=== PATIENT | female | born 1965 | race Caucasian/White ===

== ENCOUNTER → 2016-08-09 | Outpatient (CLI) | payer BC ==
[~2016-08-09] MED LIST: IBUP-1050 PO
--- NOTE | 2016-08-09 12:14 | DIAGNOSTIC IMAGING REPORT ---
CT OF THE SINUSES WITHOUT CONTRAST FUSION PROTOCOL CLINICAL HISTORY: Chronic sinusitis. Nasal septal deviation. COMPARISON STUDY: MRI of the brain April 21, 2013. TECHNIQUE: Axial images of the sinuses were obtained according to Fusion protocol. Coronal reformats were viewed. No intravenous contrast was administered. FINDINGS: Visualized portions of the intracranial contents are unremarkable on this unenhanced exam. Right mastoid air cells are clear. There is trace fluid within left mastoid air cells. There is no fluid within the middle ears. Ossicles are intact. Orbits are unremarkable. The right frontal sinus is opacified. The right frontoethmoidal recess is occluded. There is moderate polypoid mucosal thickening of the ethmoid sinuses with mild polypoid mucosal thickening of the maxillary and sphenoid sinuses. There are postsurgical findings consistent with partial ethmoidectomies and resection of the medial zarco of both maxillary sinuses. There is mild S-shaped deviation of the nasal septum. No bony destruction is present. IMPRESSION: 1. Postsurgical findings within the sinuses, as described above. 2. Opacified right frontal sinus with occluded right frontoethmoidal recess. Mild to moderate polypoid mucosal thickening within the sinuses. 3. No bony destruction. No air-fluid levels. Electronically signed by: Camilo Odell M.D. 08/09/2016 12:12 PM Dictated Date/Time: 08/09/2016 11:56 AM
== END | disposition home or self-care (01) ==
LOC: C.CTS 11:19
DX: J34.2 Deviated nasal septum (principal); J32.9 Chronic sinusitis, unspecified; J34.3 Hypertrophy of nasal turbinates

== ENCOUNTER → 2016-11-02 | Day surgery (SDC) | payer BC ==
[2016-10-05 11:58] VITALS: Ht 174 cm; Wt 92.7 kg
[~2016-11-02] VITALS: Ht 174 cm; Wt 92.7 kg
[~2016-11-02] MED LIST changes: +ATROPINE SULFATE 0.1 MG/ML 5ML SYR IV PRN; +CEFAZOLIN 2000 MG/60 ML D5W IV SCH; +DEXAMETHASONE SOD INJ 4 MG/ML VIAL ONE; +EpINEphrine INJ 1MG/ML AMP 1 MG/ML AMP ONE; +FENTANYL CITRATE INJ 50 MCG/1 ML 2 ML VIAL ONE; +GLYCOPYRROLATE INJ 0.2 MG/ML VIAL ONE; +HYDROCODONE/ACETAMOPHEN 5/325MG TAB PO PRN; -IBUP-1050 PO; +LABETALOL HCL IV 5 MG/ML 20ML IV PRN; +LACTATED RINGER'S 1000ML 1,000 ML IV SCH; +LIDOCAINE 4% MPF SOAK 5 ML = 1 DOSE TOP ONE; +LIDOCAINE HCL 2% 2 ML VIAL (20MG/ML) ONE; +LIDOCAINE/EPINEPHRINE 1% INJ 50 ML VIAL ONE; +MIDAZOLAM HCL 1 MG/ML 2ML VIAL ONE; +NEOSTIGMINE METHYLSULFATE 5 MG/5 ML SYR ONE; +ONDANSETRON INJ 2 MG/ML 2 ML VIAL IV PRN; +ONDANSETRON INJ 2 MG/ML 2 ML VIAL ONE; +OXYMETAZOLINE HCL 0.05% NA SPR 15 ML BTL PRN; +OXYMETAZOLINE HCL 0.05% NA SPR 15 ML BTL SCH; +PROMETHAZINE HCL INJ 6.25 MG in SODIUM CHLORIDE 0.9% 50ML 50 ML IV PRN; +PROPOFOL IV EMULSION 10 MG/ML 20 ML VIAL IV ONE; +SCOPOLAMINE 1.5 MG TDSY TD ONE
--- NOTE | 2016-11-02 09:24 | History and Physical: Surg Cnt ---
History & Physical Date Nov 02, 2016. Chief Complaint CHRONIC SINUSITIS, SEPTAL DEVIATION, BILATERAL INFERIOR TURBINATE HYPERTROPHY History of Present Illness The patient is a 50 year old female with complaints of CHRONIC SINUSITIS, SEPTAL DEVIATION, BILATERAL INFERIOR TURBINATE HYPERTROPHY REFRACTORY TO MAXIMAL MEDICAL THERAPY. Past Medical/Surgical History Medical Problems: (1) Lumbar spondylosis (2) Lumbar spondylosis (3) Thrombocytopenia 4. ITP 5. SNHL PSH: S/P HEATHER, EYE SURGERY, HAND SURGERY, HYSTERECTOMY, OOPHORECTOMY, TONSILLECTOMY , TUBAL LIGATION Additional History Hepatic Disease: No Endocrine Disorder: No Kidney Disease: No Hypertension: No Heart Disease: No Bleeding Tendencies: No Infectious Diseases: No Allergies Coded Allergies: Morphine (Verified Adverse Reaction, Mild, n/v, 11/02/16) Home Medications No Active Prescriptions or Reported Meds Physical Examination Skin: warm/dry, no rash Eyes: normal inspection, EOMI, sclerae normal ENT: + pertinent finding (B DNS AND ITH) Head: normocephalic, atraumatic Neck: supple, no adenopathy, trachea midline Respiratory/Chest: lungs clear, normal breath sounds, no respiratory distress Cardiovascular: regular rate, rhythm, no edema, no murmur Neurologic/Psych: no motor/sensory deficits, alert, normal reflexes, oriented x 3 Diagnosis CHRONIC SINUSITIS, SEPTAL DEVIATION, BILATERAL INFERIOR TURBINATE HYPERTROPHY Plan of Treatment IMAGE GUIDED B FESS/SEPTOPLASTY/INFERIOR TURBINATE REDUCTION
--- NOTE | 2016-11-02 10:29 | Discharge Instructions ---
Discharge Instructions Date of Service Nov 02, 2016. Admission Reason for Admission: Chronic Sinusitis, Nasal Septal Deviation, Nasal H Discharge Discharge Diagnosis / Problem: SAME Discharge Goals Goal(s): Therapeutic intervention Activity Recommendations Activity Limitations: as noted below 1. LIGHT ACTIVITY AND NO NOSE BLOWING FOR 2 WEEKS 2. NO DRIVING WHILE ON NORCO . Current Hospital Diet Patient's current hospital diet: Discharge Diet Recommended Diet: Regular Diet Procedures Procedures Performed: Revision Image Guided Bilateral Endoscopic Sinus Surgery, Septoplasty, Bilateral Inferior Turbinate Reduction Pending Studies Studies pending at discharge: no Medical Emergencies . Who to Call and When: Medical Emergencies: If at any time you feel your situation is an emergency, please call 911 immediately. . Non-Emergent Contact Non-Emergency issues call your: Surgeon . . "Provider Documentation" section prepared by Jimy De Los Santos. . VTE Core Measure Inpt VTE Proph given/why not?: SCD's
[2016-11-02] MEDS: FENTANYL CITRATE INJ 50 MCG/1 ML 2 ML VIAL IV PRN ×2 (10:50→11:02)
--- NOTE | 2016-11-02 10:56 | [facility] Operative Report ---
Operative Report Operative Date Nov 02, 2016. Pre-Operative Diagnosis Chronic Sinusitis, Nasal Septal Deviation, Hypertrophy of Nasal Turbinates Post-Operative Diagnosis Same Procedure(s) Performed Revision Image Guided Bilateral Endoscopic Sinus Surgery, Septoplasty, Bilateral Inferior Turbinate Reduction Surgeon Dr. De Los Santos Vice President Of Contracts Surgeon(s) None Estimated Blood Loss 50 ml Findings 1. Bilateral septal deviation 2. Bilateral inferior turbinate hypertrophy 3. Synechia between left middle turbinate and lateral nasal wall blocking previous left maxillary antrostomy and left ethmoidectomy 4. Polypoid mucosal thickening involving the left maxillary and ethmoid sinuses 5. Mild bilateral sphenoid sinus mucosal thickening 6. Severe right frontal ethmoid recess polyposis and purulence within the right frontal sinus 7. Synechia between the right middle turbinate and lateral nasal wall blocking previous right maxillary antrostomy and right ethmoidectomy Specimens None Anesthesia Gen. endotracheal Complication(s) None Indications The patient is a 50-year-old female with a history of chronic polypoid rhinosinusitis who has undergone endoscopic sinus surgery, septoplasty in the past by another impregnator and drier helper. She has had continued symptomatology despite maximal medical therapy. A posttreatment CT scan showed right frontal ethmoid recess blockage with a completely opacified right frontal sinus as well as patchy bilateral ethmoid sinus mucosal thickening and mild bilateral sphenoid sinus mucosal thickening. In the office, there appeared to be synechiae blocking the openings to the maxillary sinuses and ethmoid sinuses bilaterally. In addition she has septal deviation and inferior turbinate hypertrophy. She presents for revision image guided endoscopic sinus surgery. Description of Procedure After informed consent had been obtained from the patient, the patient was wheeled to the operating room and placed in the operative table in supine position. Monitors were placed after induction of general endotracheal anesthesia, the patient was prepped in usual fashion for image guided endoscopic sinus surgery. The [employer] fusion headset was placed on the patient's forehead and was verified, registered, and calibrated and used for the frontal sinus and sphenoid sinus portions of the procedure. Lidocaine and epinephrine pledgets are placed in the bilateral nasal cavities and pressure applied. The left-sided pledgets were first removed. A Ocate elevator was used to medialize the left middle turbinate as well as to lyse the synechia that was blocking the previous left maxillary antrostomy and ethmoid cavity. A lidocaine and epinephrine pledget was then placed into the left middle meatus. The right side was then addressed in a similar fashion. The left-sided plate was then removed. Instrumentation was used to perform a revision left maxillary antrostomy making the natural opening larger posteriorly, inferiorly, and anteriorly. There was mild mucosal thickening involving the left maxillary sinus. There was polypoid mucosal thickening involving the left ethmoid sinus and this was removed using power instrumentation. A revision complete ethmoidectomy was performed on this side. Using a trans-ethmoid approach, the left sphenoid sinus was entered and enlarged medially and inferiorly using powered instrumentation. A pledget was then placed into the left ethmoid cavity. The right side was addressed in a similar fashion and similarly there was a synechia blocking the right maxillary antrostomy and ethmoid cavity. This was lysed using the Ocate elevator. Powered instrumentation was used to perform a revision maxillary antrostomy and complete ethmoidectomy. Of note, there was severe polyposis involving the frontal ethmoid recess. After removal of a large polyp from this area a large amount of purulence was suctioned free from the right frontal sinus. An image guided frontal sinus suction was then inserted into the right frontal sinus. A #6 frontal sinus balloon was then inserted and inflated to 12 dain of pressure in 2 different locations to dilate the right frontal recess tract. Powered Instrumentation was used to remove polypoid tissue from the right frontal ethmoid recess. A right sphenoidotomy was then performed in a similar fashion as described on the left side. The nasal septum was then injected with 1% lidocaine with 1:100,000 epinephrine. A #15 scalpel was used to make a left [place] incision through which the left-sided mucoperichondrial mucoperiosteal flap was elevated. The patient had a previous septoplasty and therefore there was a large amount of absent quadrangular cartilage. Dissection in the septal pocket was undertaken using a 7 Vanegas suction. Small pieces of quadrangular cartilage that were causing deviation to the left-hand side anteriorly were removed using a 15 scalpel and Brody forceps. Some septal bone posteriorly was removed using Brody forceps as well which helped improve the airway on the right hand side. The septal cavity was then suctioned. The left [place] incision was closed with several simple interrupted 4-0 chromic sutures. A 4-0 plain gut suture on a Vj needle was then used to perform a quilting stitch of the mucoperichondrial and periosteal flaps bilaterally to help prevent septal hematoma. A Manjarrez elevator was then used to infracture and subsequently outfractured the inferior turbinates bilaterally. One percent lidocaine with 1: 100,000 epinephrine was then used to inject the inferior turbinates bilaterally. A 2.0 mm turbinate blade was then used to perform bilateral inferior turbinoplasties in a submucosal fashion. The sinonasal cavities were then suctioned. MeroGel dressing was placed in the bilateral ethmoid cavities. An orogastric tube was placed and the stomach was suctioned free of air and stomach contents. This marked in the case. The patient had a procedure well, patient's. The patient was exiting transferred recovery room in stable condition. I attest to the content of the Intraoperative Record and any orders documented therein. Any exceptions are noted below.
[2016-11-02 11:50] VITALS: TEMP 36.4
--- NOTE | 2016-11-02 11:58 | Anesthesiology Progress Note ---
Anesthesia Post Op Note Date & Time Nov 02, 2016 at 11:57 Vital Signs Pain Intensity: 3 Vital Signs Past 12 Hours Date Time Temp Pulse Resp B/P (MAP) Pulse Ox O2 Delivery O2 Flow Rate FiO2 11/02/16 11:31 132/87 11/02/16 11:29 36.2 58 12 132/87 97 Room Air 11/02/16 11:27 63 8 11/02/16 11:27 68 8 99 11/02/16 11:26 123/78 11/02/16 11:22 71 10 97 11/02/16 11:22 72 10 11/02/16 11:21 125/88 11/02/16 11:17 56 14 11/02/16 11:17 56 14 99 11/02/16 11:16 124/90 11/02/16 11:12 69 11 100 11/02/16 11:12 65 11 11/02/16 11:11 143/91 11/02/16 11:07 77 13 11/02/16 11:07 78 13 100 11/02/16 11:06 145/86 11/02/16 11:02 76 6 100 11/02/16 11:02 76 6 11/02/16 11:01 139/89 11/02/16 10:57 58 11 11/02/16 10:57 57 11 100 11/02/16 10:56 137/86 11/02/16 10:52 68 9 11/02/16 10:52 68 9 100 11/02/16 10:51 138/88 11/02/16 10:47 78 15 100 11/02/16 10:47 79 15 11/02/16 10:46 132/81 11/02/16 10:42 74 11 100 11/02/16 10:42 75 11 11/02/16 10:41 136/81 11/02/16 10:38 131/75 11/02/16 10:37 36.2 97 16 131/75 99 Humidified Oxygen 6 Mask 11/02/16 07:43 36.5 78 16 114/78 (90) 97 Room Air Notes Mental Status: alert / awake / arousable, participated in evaluation Pt Amnestic to Procedure: Yes Nausea / Vomiting: adequately controlled Pain: adequately controlled Airway Patency, RR, SpO2: stable & adequate BP & HR: stable & adequate Hydration State: stable & adequate Anesthetic Complications: no major complications apparent
[2016-11-02 12:45] VITALS: BP 125/82; PULSE 61; O2SAT 97
== END | disposition home or self-care (01) ==
LOC: X.SURG 07:19
DX: J34.2 Deviated nasal septum (principal); J34.3 Hypertrophy of nasal turbinates; J32.9 Chronic sinusitis, unspecified; D69.3 Immune thrombocytopenic purpura; M47.16 Other spondylosis with myelopathy, lumbar region

== ENCOUNTER → 2016-12-26 | Outpatient (CLI) | payer BC ==
--- NOTE | 2016-12-27 13:57 | MAMMOGRAPHY REPORT ---
BILATERAL DIGITAL SCREENING MAMMOGRAM TOMOSYNTHESIS WITH CAD: 12/26/2016 CLINICAL HISTORY: Routine screening. Patient has no complaints. TECHNIQUE: Breast tomosynthesis in addition to standard 2D mammography was performed. Current study was also evaluated with a Computer Aided Detection (CAD) system. COMPARISON: Comparison is made to exams dated: 11/16/2015 mammogram, 11/05/2014 mammogram, 11/04/2013 mario mogram, 08/11/2012 mammogram, 01/03/2010 mammogram - [facility], and 07/08/2007. BREAST COMPOSITION: There are scattered areas of fibroglandular density in both breasts. FINDINGS: The parenchymal pattern is unchanged. No developing mass, architectural distortion or clus ter of suspicious microcalcifications is seen in either breast. IMPRESSION: ACR BI-RADS CATEGORY 2: BENIGN There is no mammographic evidence of malignancy. A 1 year screening mammogram is recommended. The pa tient will receive written notification of the results. Approximately 10% of breast cancers are not detected with mammography. A negative mammographic report should not delay biopsy if a clinically suggestive mass is present. Maddy Reynaga M.D. ay/:12/26/2016 16:08:09 Interior Painter: Dominique NEWBY(Shira)(Alvaro)([place]), [facility] letter sent: Normal 1/2 BI-RADS Code: ACR BI-RADS Category 2: Benign
== END | disposition home or self-care (01) ==
LOC: C.MAMM 15:12
PROVIDERS: ATTEND Nurse Practitioner Family
DX: Z12.31 Encounter for screening mammogram for malignant neoplasm of breast (principal)

== ENCOUNTER → 2017-07-26 | Outpatient (CLI) | payer BC, OTHER ==
--- NOTE | 2017-07-26 10:18 | DIAGNOSTIC IMAGING REPORT ---
CERVICAL SPINE 4 OR 5 VIEWS CLINICAL HISTORY: Neck pain with right-sided radiculopathy COMPARISON STUDY: No previous studies for comparison. FINDINGS: The prevertebral soft tissues are normal. There are mild degenerative changes C5-6 level with disc space narrowing and minimal osteophyte formation. There is minimal left-sided foraminal encroachment. IMPRESSION: Degenerative changes at the C5-6 level. No fractures, subluxations, or destructive lesions are visualized Electronically signed by: Fuentes Scott M.D. 07/26/2017 10:17 AM Dictated Date/Time: 07/26/2017 10:16 AM
== END | disposition home or self-care (01) ==
LOC: C.RDSM 10:04
PROVIDERS: ATTEND Internal Medicine
DX: M54.2 Cervicalgia (principal)

== ENCOUNTER → 2017-08-21 | Outpatient (CLI) | payer OTHER | END | disposition home or self-care (01) | LOC: C.PATHSPEC 17:02 | PROVIDERS: ATTEND Urology | DX: R31.29 Other microscopic hematuria (principal); R82.99 Other abnormal findings in urine ==

== ENCOUNTER 2022-05-03 05:11 | Observation (INO) ==
--- NOTE | 2022-04-16 15:02 | PAT Medication Instructions ---
Medication Instructions Date of Service April 16, 2022 Home Medications Medication Instructions Recorded cyclobenzaprine 10 mg tablet 10 mg PO TID PRN muscle spasm #15 11/18/18 tabs hydrocodone 5 mg-acetaminophen 325 1 tab PO Q6H PRN pain, severe #12 12/22/21 mg tablet tabs methylprednisolone 4 mg tablets in See Rx Instructions .Route 12/22/21 a dose pack (Medrol (Bo)) .COMPLEX #21 ea cyclobenzaprine 10 mg tablet 10 mg PO TID PRN muscle spasm hydrocodone 5 mg-acetaminophen 325 mg tablet 1 tab PO Q6H PRN pain, severe methylprednisolone 4 mg tablets in a dose pack (Medrol (Bo)) See Rx Instructions naproxen 250 mg tablet 250 mg PO BID PRN Pain pregabalin 50 mg capsule (Lyrica) 50 mg PO TID Continue as directed methylprednisolone 4 mg tablets in a dose pack (Medrol (Bo)) See Rx Instructions ASK your surgeon for instructions naproxen 250 mg tablet 250 mg PO BID PRN Pain DO NOT take the morning of surgery cyclobenzaprine 10 mg tablet 10 mg PO TID PRN muscle spasm Take morning of surgery With a small sip of water, OTHERWISE NOTHING TO EAT OR DRINK AFTER MIDNIGHT: hydrocodone 5 mg-acetaminophen 325 mg tablet 1 tab PO Q6H PRN pain, severe (if needed) pregabalin 50 mg capsule (Lyrica) 50 mg PO TID Take evening before surgery cyclobenzaprine 10 mg tablet 10 mg PO TID PRN muscle spasm (if needed) hydrocodone 5 mg-acetaminophen 325 mg tablet 1 tab PO Q6H PRN pain, severe (if needed) pregabalin 50 mg capsule (Lyrica) 50 mg PO TID Other Notes If you have any questions please call us at [phone] or [phone] or [phone] or [phone]
--- NOTE | 2022-04-17 09:08 | Anesthesiology Consultation ---
Date of Service April 17, 2022 Assessment & Plan (1) Encounter for pre-operative examination: Chart Review Chart Review: Acceptable Risk for Surgery (pending PCP clearance from 04/16/22) and Patient seen in Pre Admission Testing - Awaiting surgeon ordered PCP clearance - done 04/16/22 Pt currently scheduled as 23 hours observation. If surgeon decides to change patient to Same Day Joint, patient would be acceptable risk for DENNISE, pending patient is motivated, has good support and surgeon's office completes [facility] Program preop requirements. Per PAT appt on 04/17/22, patient denies any recent travel or large group activities. Pt did test Covid positive in mid Mar 2022 with home test. Preop Covid test done at [facility] appt 04/17/22= negative. Pt is vaccinated for Covid. Educated on importance of using Covid precautions one week prior to surgery Teaching & Discussion Pre-Anesthesia Teaching/Discussion Notes: Instructed NPO after midnight before surgery,except medications with 15 cc of water. Medication instructions provided according to the [facility] guidelines. History Surgery Operation Date: 04/26/22 07:00 Proposed Procedures p Right Total Hip Arthroplasty - Jamie Wren MD Height/Weight Height: 5 ft 9 in Weight: 88.3 kg Allergies Allergy/AdvReac Type Severity Reaction Status Date / Time morphine AdvReac Mild n/v Verified 04/16/22 12:36 Medications Home Medications Medication Instructions Recorded Confirmed Last Taken cyclobenzaprine 10 mg tablet 10 mg PO TID PRN muscle spasm #15 11/18/18 04/16/22 Unknown tabs hydrocodone 5 mg-acetaminophen 325 1 tab PO Q6H PRN pain, severe #12 12/22/21 04/16/22 Unknown mg tablet tabs naproxen 250 mg tablet 250 mg PO BID PRN Pain 04/16/22 04/16/22 Unknown pregabalin 50 mg capsule (Lyrica) 50 mg PO TID 04/16/22 04/16/22 Unknown Past Medical History Medical History History of COVID-19 03/2022 home test cough, sore throat, runny nose; no hospitazlization, no current issues History of ITP Hx 10 yrs ago - happened after cortisone injection - Left knee pain Due to compensation from right hip Lumbar spondylosis Nausea and vomiting after administration of anesthetic agent Exercise / Class Metabolic Activity II 4-5 Yardwork/Stairs/Walk up hill (one flight of stairs - no chest pain or SOB ) Past Surgical History Surgical History History of partial hysterectomy Hx of cholecystectomy Hx of colonoscopy Hx of eye surgery Hx of hand surgery finger surgery Hx of hysterectomy Past Anesthesia History No Hx of Anesthesia Complications (with exception to PONV ) and No Family Hx of Anesthesia Complications History of PONV No Hx of Motion Sickness and History of PONV (improved with pre treatment of IV anti nausea medication ) Social History Smoking Status: Never smoker Do You Dip or Chew Tobacco: No Hx Alcohol Use: Yes alcohol intake frequency: a few times a month Hx Substance Use: No substance use type: does not use Review of Systems Hx of snoring - no witnessed apnea- no hx of sleep study Patient denies chest pain, shortness of breath, dyspnea on exertion, reflux, cough, wheezing, palpitations. No hx of seizures, stroke, [place]. No hx of blood clots or blood transfusions Physical Exam Vital Signs VITALS BP 105/71 P 82 TEMP 98.0 SP02 97% RESP 16 Constitutional no acute distress ENMT Mouth: no TMJ clicking Thyromental Distance: < 3.5 Finger Breadths (3.0) Mallampati Class: I Missing molars Cap to molar Neck neck extension not limited Respiratory normal respiratory effort; no respiratory distress Auscultation: lungs clear to auscultation bilaterally; no wheezes Cardiovascular Rate/Rhythm: regular rate and regular rhythm Heart Sounds: no murmur Vessels: no carotid bruit Musculoskeletal Spine: + pain with cervical ROM Extremities: extremities normal to inspection Psychiatric Orientation: alert Lab Results Anesthesia Preop Results Results Anesthesia Widget: WBC 4.22 K/ul (4.8-10.8) L 04/17/22 Hgb 12.9 g/dl (12.0-16.0) 04/17/22 Hct 39.8 % (34.1-44.9) 04/17/22 Plt 266 K/uL (130-400) 04/17/22 Na 138 mmol/L (136-145) 04/17/22 K 4.0 mmol/L (3.5-5.1) 04/17/22 Cl 106 mmol/L (98-107) 04/17/22 CO2 28 mmol/L (21-32) 04/17/22 BUN 17 mg/dl (6-23) 04/17/22 Creat 0.69 mg/dl (0.6-1.2) 04/17/22 Glucose Level 89 mg/dl (70-99(Fasting)) 04/17/22 PT 10.7 Seconds (9.0-12.0) 04/17/22 PTT 28.3 Seconds (21.0-31.0) 04/17/22 INR 1.0 (0.9-1.1) 04/17/22 Urine Color Yellow 04/17/22 Urine Appearance Cloudy (Clear) A 04/17/22 Urine pH 7.0 (4.5-7.5) 04/17/22 Urine Specific [place] 1.018 (1.000-1.030) 04/17/22 Urine Protein Negative (Negative) 04/17/22 Urine Glucose (UA) Negative (Negative) 04/17/22 Urine Ketones Negative (Negative) 04/17/22 Urine Blood Negative (Negative) 04/17/22 Urine Nitrite Positive (Negative) A 04/17/22 Urine Bilirubin Negative (Negative) 04/17/22 Urine Urobilinogen Negative (Negative) 04/17/22 Urine Leukocyte Esterase 1+ (Negative) H 04/17/22 Urine WBC (Auto) 5-10 /hpf (0-5) H 04/17/22 Urine RBC (Auto) 0-4 /hpf (0-4) 04/17/22 Urine Hyaline Casts (Auto) 1-5 /lpf (0-5) 04/17/22 Urine Epithelial Cells (Auto) 20-30 /lpf (0-5) H 04/17/22 Urine Bacteria (Auto) 4+ (Negative) H 04/17/22 Blood Type A Positive 04/17/22 Antibody Screen NEGATIVE 04/17/22 Testing Laboratory Results Surgeon's office informed of abnormal UA results- will leave to surgeon's discretion with how to proceed Electrocardiogram Date: 04/17/22 Findings: + NSR @ (70bpm ) Normal EKG per cardio. Chest X-Ray Date: 04/17/22 Findings: + NAD COVID-19 Risk Screen Screening Information COVID-19 Screen Date: 04/17/22 Exposure 21 Days Family/Household +COVID Last 21 Days: No Exposure 10 Days Any COVID Exposure Last 10 Days: No Symptoms Last 10 Days Experienced COVID Sx Last 10 Days: No + COVID 0-90 Days COVID + in Last 0-90 Days: Yes + COVID Test 0-10 Day: No + COVID Test 11-90 Day: Yes Date/Place of COVID-19 Test: Home test - mid March What were Your COVID- 19 Symptoms: Cough, sore throat, runny nose Currently Having Symptoms Related to COVID: No Were You Hospitalized due to COVID-19 and Where: No COVID Testing Site COVID-19 Preop/Pre-Procedure Testing Site: [facility] (Preop Covid testing done at [facility] appt 04/17/22= negative ) Risk Plan COVID Risk Plan: Last -D + CoV Test Patient Education COVID Preop Screening Education Complete: Yes
[~2022-05-03 05:11] MED LIST changes: -ATROPINE SULFATE 0.1 MG/ML 5ML SYR IV PRN; -CEFAZOLIN 2000 MG/60 ML D5W IV SCH; -DEXAMETHASONE SOD INJ 4 MG/ML VIAL ONE; -EpINEphrine INJ 1MG/ML AMP 1 MG/ML AMP ONE; -FENTANYL CITRATE INJ 50 MCG/1 ML 2 ML VIAL ONE; -GLYCOPYRROLATE INJ 0.2 MG/ML VIAL ONE; -HYDROCODONE/ACETAMOPHEN 5/325MG TAB PO PRN; -LABETALOL HCL IV 5 MG/ML 20ML IV PRN; -LACTATED RINGER'S 1000ML 1,000 ML IV SCH; -LIDOCAINE 4% MPF SOAK 5 ML = 1 DOSE TOP ONE; -LIDOCAINE HCL 2% 2 ML VIAL (20MG/ML) ONE; -LIDOCAINE/EPINEPHRINE 1% INJ 50 ML VIAL ONE; -MIDAZOLAM HCL 1 MG/ML 2ML VIAL ONE; -NEOSTIGMINE METHYLSULFATE 5 MG/5 ML SYR ONE; -ONDANSETRON INJ 2 MG/ML 2 ML VIAL IV PRN; -ONDANSETRON INJ 2 MG/ML 2 ML VIAL ONE; -OXYMETAZOLINE HCL 0.05% NA SPR 15 ML BTL PRN; -OXYMETAZOLINE HCL 0.05% NA SPR 15 ML BTL SCH; -PROMETHAZINE HCL INJ 6.25 MG in SODIUM CHLORIDE 0.9% 50ML 50 ML IV PRN; -PROPOFOL IV EMULSION 10 MG/ML 20 ML VIAL IV ONE; +ROPIVACAINE 0.5% HCL/PF 150 MG, BUPIVACAINE 0.75% MPF 20 ML, EPINEPHrine 0.15 MG, Ketor... INFIL SCH; -SCOPOLAMINE 1.5 MG TDSY TD ONE
[2022-05-03] MEDS ORDERED: ceFAZolin 2000MG 2,000 MG/15 ML SYR IV SCH (06:00)
[2022-05-03] MEDS ORDERED: Scopolamine 1 MG TDSY TD SCH (06:00)
[2022-05-03] MEDS ORDERED: FAMOTIDINE 20 MG TAB PO SCH (06:00)
[2022-05-03] MEDS ORDERED: LR 500ML BOLUS, THEN 15ML/HR IV SCH (06:00)
[2022-05-03] MEDS ORDERED: dexAMETHasone 4 MG TAB PO SCH (06:00)
[2022-05-03] MEDS ORDERED: ROPIVACAINE 0.5% HCL/PF 150 MG, BUPIVACAINE 0.75% MPF 20 ML, EPINEPHrine 0.15 MG, Ketor... INFIL SCH (06:00)
[2022-05-03] MEDS ORDERED: LR 60ML/HR IV SCH (06:00)
[2022-05-03] MEDS ORDERED: TRANEXAMIC ACID 1,000 MG **IV Pre-op IV SCH (06:00)
[2022-05-03] MEDS ORDERED: TRANEXAMIC ACID 1,000 MG **IV Intra-op IV SCH (06:00)
[2022-05-03] MEDS ORDERED: traMADol HCL 50 MG TABLET PO SCH (06:00)
[2022-05-03] MEDS ORDERED: CeleBREX 200 MG CAP PO SCH (06:00)
[2022-05-03] MEDS ORDERED: ACETAMINOPHEN 500 MG TAB PO SCH (06:00)
[2022-05-03] MEDS ORDERED: BUPIVACAINE 0.5 % 5 MG/1 ML PF 10ML VIAL ONE (06:27)
[2022-05-03] MEDS ORDERED: ORTHO JOINT ANESTHETIC ONE (06:39)
[2022-05-03] MEDS ORDERED: MIDAZOLAM HCL 1 MG/ML 2ML VIAL ONE ×2 (06:42→08:08)
[2022-05-03] MEDS ORDERED: fentaNYL citrate 100 MCG/2 ML VIAL ONE (06:42)
--- NOTE | 2022-05-03 06:44 | History & Physical Bridge Note ---
Date of Service May 03, 2022 History & Physical Bridge Note I have examined the patient, reviewed the History & Physical and in the interval since the performance of the History & Physical I have noted the following changes of clinical significance: no changes noted
[2022-05-03] MEDS ORDERED: PROPOFOL IV EMULSION 10 MG/ML 20 ML VIAL IV ONE ×2 (07:16→08:40)
[2022-05-03] MEDS ORDERED: LIDOCAINE 2% MPF LOCAL 5 ML VIAL INFIL ONE (07:16)
[2022-05-03] MEDS ORDERED: ONDANSETRON INJ 2 MG/ML 2 ML VIAL ONE (07:16)
[2022-05-03] MEDS ORDERED: LABETALOL HCL IV 5 MG/ML 20ML IV ONE (07:30)
--- NOTE | 2022-05-03 08:47 | Operative Report ---
Post Operative Report Pre & Post Diagnosis Operation Date: 05/03/22 07:00 Pre-Op Diagnosis: Right Hip Osteoarthritis Post-Op Diagnosis: Right Hip Osteoarthritis I identified the patient and participated in the time-out.: Yes Procedure Operation Date: 05/03/22 07:00 Actual Procedures p Right Total Hip Arthroplasty(Right) - Jamie Wren MD Surgeon Jamie Wren MD Shade Cutter Shyam Kelley PA-C. No resident or fellow was available to assist. Estimated Blood Loss 200 Findings Consistent with Post-Op Diagnosis Specimens Right femoral head. Anesthesia Type Spinal MAC Complications none Disposition Disposition: Recovery Room Indications 56-year-old female with right hip osteoarthritis refractory to conservative management. X-rays demonstrate joint space narrowing, subchondral sclerosis, and marginal osteophyte formation. I had a long discussion with her about the risks and benefits of surgery, alternatives to surgery, and expected outcomes. After reviewing all these she elected to proceed with surgery. All questions were answered. Informed consent was signed. Description of Procedure Patient was identified in the preoperative holding area where the surgical site, right hip, was marked. A spinal anesthetic was placed, then the patient was brought back to the main operating room, placed in the operating table and moved into the lateral decubitus position. Axillary roll was placed. All bony prominences were padded. Perioperative antibiotics and tranexamic acid 1 gram IV were administered. Operative extremity was prepped and draped in the normal sterile fashion. Prior to incision a multidisciplinary timeout was called. All in the room were in agreement. We began by making an incision for a posterior approach to the hip. We dissected down through subcutaneous tissues to the level of the fascia. The fascia was incised in line with the incision. Charnley bow was placed. Fatty tissue was reflected posteriorly off the back of the greater trochanter to expose the piriformis and short external rotators of the hip. The piriformis and short external rotators were dissected off the posterior aspect of the hip. A box cut was made in the capsule. Inferior hip capsule was released off the femur. The femoral head was dislocated. The femoral neck cut was made at our preoperative template. The acetabulum was then exposed. The labrum was sharply excised. Contents of the cotyloid fossa were removed with electrocautery. We then began reaming at a size 8 mm less than our preoperative template. We reamed up by [address] the way up to a size 54 mm cup. This gave us good bleeding cancellus bone circumferentially. The acetabulum was then irrigated out and dried. The real Napoleon Gription cup was then impacted down into position with 45 degrees of lateral opening and 25 degrees of anteversion. A single cancellous bone screw was placed up into the ilium. Excellent fixation was obtained. A trial liner for a 36 mm femoral head was then placed. Next we turned our attention to the femur. The lateral neck was removed with a box osteotome. Intramedullary guide was used followed by the lateralizing reamer. We then reamed up to a size 5 [place] stem. We then broached all the way up to a size 4. We began trialing with a standard offset neck and a +5 head. Hip was reduced. Leg lengths were symmetric. The hip was stable in extension and external rotation, and stable in the sleeper position. At 90 degrees of hip flexion the hip could be internally rotated 55 degrees before levering out of the cup. I was very happy with the stability exam. Therefore the hip was dislocated and the femoral trial was removed. The acetabulum was re-exposed, and the trial liner was removed. An apex hole eliminator screw was placed. Then, an Altrx polyethylene liner for a 36 mm femoral head was then impacted into the shell. The locking mechanism was checked to ensure that it had engaged which it had. The femur was re-exposed. The femoral canal was irrigated and dried. The real size 4 standard offset [place] femoral stem was opened up. This was impacted down into position. It sat about 2 mm higher than the femoral trial. Therefore, we retrialed with a +1.5 mm offset head. Leg lengths remain symmetric. Stability exam showed her to be stable in the sleeper position and stable in extension X rotation. She could be internally rotated 50 degrees before levering out of the cup. I was happy with the stability exam. Therefore, the 36 mm ceramic femoral head with +1.5 mm offset was opened up and gently impacted down onto the trunnion. The hip was atraumatically reduced. Another 1 gram of IV tranexamic acid was started prior to closure. The wound was irrigated out with sterile Betadine solution. The periarticular injection cocktail was then placed. The short external rotators, piriformis, and posterior capsule were repaired through drill holes in the greater trochanter using #2 Vicryl. The fascia was run with a looped #1 PDS. The subcutaneous layer was closed with #1 PDS. The dermal layer was closed with 2-0 Vicryl. Zip line was used for the skin followed by a Silverlon dressing. A compressive dressing was then placed. The patient was then rolled supine. Leg lengths were rechecked and were symmetric. An abduction pillow was placed. Sedation was lifted and the patient was transferred to the recovery room in stable condition. Summary of implants: Depuy Napoleon Gription Acetabular Shell Sector Cup, 54 mm outer diameter Napoleon Cancellous bone screw, 6.5 x 40 mm [place] hole eliminator Napoleon Altrx Polyethylene Acetabular Liner, Neutral, with a 36 mm inner diameter DePuy [place] Femoral stem with Por[place]oat, 12/14 taper, size 4 standard offset 36 mm ceramic femoral head with +1.5 offset Postoperative course: Patient will be admitted to the hospital from the recovery room. Patient will be weightbearing as tolerated with posterior hip precautions. Aspirin for DVT prophylaxis I attest to the content of the Intraoperative Record and any orders documented therein. Any exceptions are noted below.
[2022-05-03] MEDS ORDERED: ONDANSETRON INJ 2 MG/ML 2 ML VIAL IV PRN ×2 (09:01→11:53)
[2022-05-03] MEDS ORDERED: PROMETHAZINE HCL 12.5 MG in SODIUM CHLORIDE 0.9% 50 ML IV PRN (09:01)
[2022-05-03] MEDS ORDERED: FLUMAZENIL 0.1 MG/1 ML 10 ML VIAL IV PRN (09:01)
[2022-05-03] MEDS ORDERED: NALOXONE HCL 0.4 MG/1 ML VIAL/CARP IV PRN ×2 (09:01→11:53)
[2022-05-03] MEDS ORDERED: ATROPINE SULFATE 0.1 MG/ML 10ML SYR IV PRN (09:01)
--- NOTE | 2022-05-03 09:16 | Operative Report ---
Post Operative Report Pre & Post Diagnosis Operation Date: 05/03/22 07:00 Pre-Op Diagnosis: Right Hip Osteoarthritis Post-Op Diagnosis: Right Hip Osteoarthritis I identified the patient and participated in the time-out.: Yes Procedure Operation Date: 05/03/22 07:00 Actual Procedures p Right Total Hip Arthroplasty(Right) - Jamie Wren MD Surgeon Rodrigo Wren MD Medical Assistant Ob Gyn Shyam Kelley PA-C. No resident or fellow was available to assist. Estimated Blood Loss 200 Findings Consistent with Post-Op Diagnosis see operative report Specimens see operative report Drains none Complications none Disposition Accompanied Patient To Recovery: Yes Indications This 56-year-old female presented to the office with complaints of persisting right hip pain. She had tried conservative care measures without improvement. She elected to proceed with surgical intervention after being educated about potential risks and outcomes. Preoperative imaging was obtained. Description of Procedure Patient was administered a spinal anesthetic and then taken to the operating room where she was given sedation. She was prepped and draped in the usual sterile fashion. Please see Dr. Wren's operative report for specifics of the procedure. I was present for the entire case from initial patient positioning through final wound closure. Assistance was provided in tissue retraction, hemostasis, trial implant placement, final implant placement, and final wound closure. Patient was taken to the recovery room in satisfactory condition. I attest to the content of the Intraoperative Record and any orders documented therein. Any exceptions are noted below.
[2022-05-03] MEDS: fentaNYL citrate 100 MCG/2 ML VIAL IV PRN ×3 (09:29→10:55)
--- NOTE | 2022-05-03 09:50 | Anesthesiology Progress Note ---
Date of Service May 03, 2022 Anesthesia Post Procedure Vital Signs Vital Signs: Temp Pulse Pulse Resp BP BP Pulse Ox 05/03/22 09:45 59 L 21 95/60 L 96 05/03/22 09:35 50 L 13 89/59 L 100 05/03/22 09:25 48 L 12 99/59 L 100 05/03/22 09:15 54 L 10 L 98/56 L 100 05/03/22 09:05 60 17 97/59 L 100 05/03/22 08:55 35.9 C L 57 L 12 96/57 L 96 05/03/22 05:32 36.5 C 81 20 117/78 97 O2 Del Method O2 Flow Rate 05/03/22 09:45 Room Air 05/03/22 09:35 Oxymask 4 05/03/22 09:25 Oxymask 4 05/03/22 09:15 Oxymask 4 05/03/22 09:05 Oxymask 4 05/03/22 08:55 Oxymask 4 05/03/22 05:32 Room Air Pain Intensity Right Hip: Pain Intensity: 4 Transfer of Care Handoff Completed per policy Notes Mental Status: alert / awake / arousable Patient Amnestic to Procedure: Yes Nausea / Vomiting: adequately controlled Pain: adequately controlled Airway Patency, RR, SpO2: stable & adequate BP & HR: stable & adequate Hydration State: stable & adequate Neuraxial Anesthesia: was administered and sensory block is resolving Anesthetic Complications: no major complications apparent
[2022-05-03] MEDS: ePHEDrine sulfate 50 MG/ML AMP IV PRN ×2 (10:23→10:41)
[2022-05-03] MEDS ORDERED: diphenhydrAMINE 50 MG/ML VIAL IV PRN (11:53)
[2022-05-03] MEDS ORDERED: METOCLOPRAMIDE HCL INJ 5 MG/ML 2 ML VIAL IV PRN (11:53)
[2022-05-03] MEDS ORDERED: ALUMINUM/MAGNESIUM SUSP 30 ML UDC PO PRN (11:53)
[2022-05-03] MEDS ORDERED: bisacodyL 10 MG SUPP PR PRN (11:53)
[2022-05-03] MEDS ORDERED: MAGNESIUM HYDROXIDE SUSP 30 ML UDC PO PRN (11:53)
[2022-05-03] MEDS: SODIUM CHLORIDE 0.9% 1000ML 1,000 ML IV SCH ×2 (12:21→22:44)
[2022-05-03] MEDS: KETOROLAC 30 MG/ML VIAL IV SCH ×3 (12:22→23:03)
[2022-05-03] MEDS: oxyCODONE HCL IR 5 MG TAB (IMMEDIATE RELEASE) PO PRN ×2 (12:55→19:59)
--- NOTE | 2022-05-03 14:14 | XRay Report ---
XR pelvis 1-2V routine CLINICAL HISTORY: In PACU - Post Surgical TECHNIQUE: A single frontal view of the pelvis was obtained. Comparison: Comparison is made to pelvis radiograph 04/17/2022 FINDINGS: Patient is status post total hip arthroplasty with expected postsurgical changes including soft tissu e swelling, and subcutaneous emphysema. No periarticular lucency or hardware fracture is seen. IMPRESSION: Expected postoperative appearance status post placement of total hip arthroplasty. ACT 112: Negative or not required by law. Electronically signed by: Darrell Dinh M.D. 05/03/2022 2:13 PM
[2022-05-03] MEDS: ACETAMINOPHEN 500 MG TAB PO SCH ×2 (15:08→22:44)
[2022-05-03] MEDS: PREGABALIN 50 MG CAP PO SCH ×2 (15:08→20:17)
[2022-05-03] MEDS ORDERED: Scopolamine CHECK PATCH PLACEMENT SCH (16:00)
[2022-05-03] MEDS: HYDROmorphone INJ 0.5 MG/0.5 ML SYR IV PRN ×2 (16:16→23:07)
[2022-05-03] MEDS: ceFAZolin 2000MG 2,000 MG/15 ML SYR IV SCH ×2 (16:55→23:04)
[2022-05-03] MEDS: ASCORBIC ACID 500 MG TAB PO SCH (16:55)
[2022-05-03] MEDS: FERROUS GLUCONATE 324 MG TAB PO SCH (16:55)
[2022-05-03] MEDS: ASPIRIN 325 MG ECTAB PO SCH (20:18)
[2022-05-03] MEDS: DOCUSATE SODIUM 100 MG CAP PO SCH (20:18)
[2022-05-03] MEDS ORDERED: SENNA 8.6 MG TAB PO SCH (21:00)
[2022-05-04] MEDS: KETOROLAC 30 MG/ML VIAL IV SCH (05:42)
[2022-05-04] MEDS: ACETAMINOPHEN 500 MG TAB PO SCH (05:42)
[2022-05-04 06:24] LABS: Basophils # (auto) 0.01 K/uL (0-0.2); Basophils % (auto) 0.1 %; Hematocrit (blood only) 32.3 % (34.1-44.9); Hemoglobin 10.3 g/dl (12.0-16.0); Immature Granulocytes # (auto) 0.03 K/uL (0.00-0.02); Immature Granulocytes % (auto) 0.3 %; Lymphocytes # (auto) 0.83 K/uL (1.2-3.4); Lymphocytes % (auto) 8.8 %; Mean Corpuscular Hemoglobin 29.2 pg (25.0-34.0); Mean Corpuscular Hgb Conc 31.9 g/dL (32.0-36.0); Mean Corpuscular Volume 91.5 fL (80.0-100.0); Mean Platelet Volume 9.7 fL (9.4-12.3); Monocytes # (auto) 0.58 K/uL (0.24-0.82); Monocytes % (auto) 6.2 %; Neutrophils # (auto) 7.98 K/uL (1.4-6.5); Neutrophils % (auto) 84.6 %; Platelet Count 234 K/uL (130-400); RDW Coefficient of Variation 12.9 % (11.5-14.5); RDW Standard Deviation 42.6 fL (36.4-46.3); Red Blood Count 3.53 M/uL (3.93-5.22); White Blood Count 9.43 K/ul (4.8-10.8)
[2022-05-04 06:48] LABS: BUN Creatinine Ratio 32.8 (10-20); Creatinine Clr Calc Pharmacy 112.5 ml/min; Est GFR (African American) 114.7 ml/min; Potassium 4.8 mmol/L (3.5-5.1)
[2022-05-04] MEDS: oxyCODONE HCL IR 5 MG TAB (IMMEDIATE RELEASE) PO PRN ×2 (07:11→11:19)
[2022-05-04] MEDS ORDERED: dexAMETHasone 10 MG in SYRINGE 0 ML IV SCH (08:00)
[2022-05-04] MEDS: DOCUSATE SODIUM 100 MG CAP PO SCH (08:26)
[2022-05-04] MEDS: ASCORBIC ACID 500 MG TAB PO SCH (08:27)
[2022-05-04] MEDS: ASPIRIN 325 MG ECTAB PO SCH (08:27)
[2022-05-04] MEDS: FERROUS GLUCONATE 324 MG TAB PO SCH (08:27)
[2022-05-04] MEDS: PREGABALIN 50 MG CAP PO SCH (08:29)
[2022-05-04] MEDS ORDERED: MULTIVITAMIN TAB PO SCH (09:00)
--- NOTE | 2022-05-04 10:10 | Orthopedic Progress Note ---
Date of Service May 04, 2022 Assessment & Plan (1) S/P total hip arthroplasty: Plan: Total hip precautions reviewed Weightbearing as tolerated with walker assistance Pain control with p.o. medications Ice with his wrap Keep Silverlon dressing in place Abduction pillow use x6 weeks postoperatively DVT prophylaxis with teds and aspirin Plan is to discharge home today with in-home physical therapy for the first 2 weeks postoperatively Follow-up with [facility] orthopedics as previously scheduled With questions contact our clinic at [phone] Admission and Anticipated Discharge Date Admission Date: May 03, 2022 Subjective This 56-year-old female seen today. She is day 1 status post right total hip arthroplasty. Patient states that she is doing fairly well. Her only issue is some pain in the operative hip that was well controlled with oral oxycodone. She states she has been able to get out of bed and use the restroom without assistance other than her walker. She has finished with physical therapy and Occupational Therapy and is ready to be discharged home later today. Currently she denies any chest pain, shortness of breath, fever, chills, sweats, nausea, vomiting or difficulty voiding. She states she does have chronic numbness in her right lower extremity due to back issues but states that it is no worse than it had been prior to surgery. Review of Systems Review of Systems: All systems reviewed & are unremarkable except as noted in Subjective Physical Exam Physical Exam: Right hip: Outer dressing was removed. Silverlon is clean dry and intact. Patient is able to perform an active straight leg raise test. She is able to actively dorsi and plantarflex her foot without issue. Logroll test is negative. Patient has no pain with light passive hip flexion near 90 degrees. She does experience slight twinge over the lateral aspect of the thigh with light passive internal and external rotation. Otherwise, she is neurovascular intact in the right lower extremity. Results & Data ([facility]) Vital Signs (Past 12 Hours) Vital Signs Temp Pulse Resp BP Pulse Ox O2 Del Method 05/04/22 07:01 36.7 C 77 16 103/65 96 Room Air 05/04/22 06:19 36.9 C 85 18 103/67 95 Room Air 05/04/22 02:34 36.7 C 68 18 109/68 95 Room Air 05/03/22 22:28 36.7 C 68 16 108/68 95 Room Air Diagnostic Findings Laboratory Results WBC 9.43 K/ul (4.8-10.8) 05/04/22 05:36 RBC 3.53 M/uL (3.93-5.22) L 05/04/22 05:36 Hgb 10.3 g/dl (12.0-16.0) L 05/04/22 05:36 Hct 32.3 % (34.1-44.9) L 05/04/22 05:36 MCV 91.5 fL (80.0-100.0) 05/04/22 05:36 MCH 29.2 pg (25.0-34.0) 05/04/22 05:36 MCHC 31.9 g/dL (32.0-36.0) L 05/04/22 05:36 RDW Std Deviation 42.6 fL (36.4-46.3) 05/04/22 05:36 RDW Coeff of [place] 12.9 % (11.5-14.5) 05/04/22 05:36 Plt Count 234 K/uL (130-400) 05/04/22 05:36 MPV 9.7 fL (9.4-12.3) 05/04/22 05:36 Immature Gran % (Auto) 0.3 % 05/04/22 05:36 Neut % (Auto) 84.6 % 05/04/22 05:36 Lymph % (Auto) 8.8 % 05/04/22 05:36 [place] % (Auto) 6.2 % 05/04/22 05:36 Eos % (Auto) 0.0 % 05/04/22 05:36 Baso % (Auto) 0.1 % 05/04/22 05:36 Neut # (Auto) 7.98 K/uL (1.4-6.5) H 05/04/22 05:36 Lymph # (Auto) 0.83 K/uL (1.2-3.4) L 05/04/22 05:36 [place] # (Auto) 0.58 K/uL (0.24-0.82) 05/04/22 05:36 Eos # (Auto) 0.00 K/uL (0-0.50) 05/04/22 05:36 Baso # (Auto) 0.01 K/uL (0-0.2) 05/04/22 05:36 Immature Gran # (Auto) 0.03 K/uL (0.00-0.02) H 05/04/22 05:36 Sodium 138 mmol/L (136-145) 05/04/22 05:36 Potassium 4.8 mmol/L (3.5-5.1) 05/04/22 05:36 Chloride 109 mmol/L (98-107) H 05/04/22 05:36 Carbon Dioxide 27 mmol/L (21-32) 05/04/22 05:36 Anion Gap 2 (3-11) L 05/04/22 05:36 BUN 22 mg/dl (6-23) 05/04/22 05:36 Creatinine 0.67 mg/dl (0.6-1.2) 05/04/22 05:36 Est Cr Clr Drug Dosing 112.5 ml/min 05/04/22 05:36 Est GFR ( Amer) 114.7 ml/min 05/04/22 05:36 Est GFR (Non-Af Amer) 99.0 ml/min 05/04/22 05:36 BUN/Creatinine Ratio 32.8 (10-20) H 05/04/22 05:36 Glucose 134 mg/dl (70-99(Fasting)) H 05/04/22 05:36 Calcium 8.0 mg/dl (8.5-10.1) L 05/04/22 05:36 SARS-CoV-2, RNA, NAAT NEGATIVE (NEGATIVE) 05/03/22 05:20 Impressions Pelvis X-Ray 05/03/22 09:08 XR pelvis 1-2V routine CLINICAL HISTORY: In PACU - Post Surgical TECHNIQUE: A single frontal view of the pelvis was obtained. Comparison: Comparison is made to pelvis radiograph 04/17/2022 FINDINGS: Patient is status post total hip arthroplasty with expected postsurgical changes including soft tissue swelling, and subcutaneous emphysema. No periarticular lucency or hardware fracture is seen. IMPRESSION: Expected postoperative appearance status post placement of total hip arthroplasty. ACT 112: Negative or not required by law. Electronically signed by: Darrell Dinh M.D. 05/03/2022 2:13 PM
--- NOTE | 2022-05-04 10:22 | Discharge Summary ---
Date of Service May 04, 2022 Admission HPI Per Admitting Provider History of Present Illness: Patient is a 56 Years year-old Female presenting today for their pre-operative history and physical examination prior to undergoing a Right total hip arthroplasty with Dr Wren The patient has failed conservative treatment for right hip end stage osteoarthritis and is electing to proceeding with surgical intervention. Admission Exam Per Admitting Provider Physical Examination: General: Pt is well nourished, seated on the exam table AA&O, in NAD, calm and cooperative during exam HENT: Nontraumatic, no gross deformity, hearing and vision grossly in-tact, PERRL Neuro: Gross motor and sensory grossly in tact Heart: +S1, +S2, RRR, no murmurs appreciated Lungs: CTABL, no wheezing appreciated Right hip: Numbness to the plantar right foot, anterior right leg, anterior right thigh, and anterior lateral calf. No numbness to the posterior calf or lateral thigh. 5/5 strength in toe extension and flexion and ankle dorsiflexion and plantarflexion. Straight leg raise reproduces symptoms, improved with knee flexed. Hip ROM: flexion to 90 degrees, external rotation to 40 degrees, internal rotation to 10 degrees. Non-painful ROM of the left hip. Significantly decreased ROM of the right hip compared to the contralateral hip. Positive cross straight leg test. No tenderness to palpation over the trochanteric bursa, gluteus medius, or ischial tuberosity. Tenderness to palpation of the sciatic notch and sacroiliac joint. Significant tenderness to palpation of the spinous processes from T12 to sacrum. Right hip abductor strength 3+/5. Principal Diagnosis Right hip osteoarthritis Discharge Exam Right hip: Outer dressing was removed. Silverlon is clean dry and intact. Patient is able to perform an active straight leg raise test. She is able to actively dorsi and plantarflex her foot without issue. Logroll test is negative. Patient has no pain with light passive hip flexion near 90 degrees. She does experience slight twinge over the lateral aspect of the thigh with light passive internal and external rotation. Otherwise, she is neurovascular intact in the right lower extremity. Discharge Data Allergies Allergy/AdvReac Type Severity Reaction Status Date / Time morphine AdvReac Mild n/v Verified 05/03/22 05:28 Procedures Performed Operation Date: 05/03/22 07:00 Actual Procedures p Right Total Hip Arthroplasty(Right) - Jamie Wren MD Hospital Course (1) S/P total hip arthroplasty: Patient had an uneventful overnight stay following right total hip arthroplasty. She states that her pain was well controlled with the p.o. oxycodone. She is anxious to be discharged home today. She states she is doing in-home physical therapy with [facility]. Total hip precautions reviewed Weightbearing as tolerated with walker assistance Pain control with p.o. medications Ice with his wrap Keep Silverlon dressing in place Abduction pillow use x6 weeks postoperatively DVT prophylaxis with teds and aspirin Plan is to discharge home today with in-home physical therapy for the first 2 weeks postoperatively Follow-up with [facility] orthopedics as previously scheduled With questions contact our clinic at [phone] Total Time Total Time Spent Total Time Spent (In Minutes): 20 mins Discharge Plan Discharge Items Patient Disposition: Home - Home Health Services Reason For Visit: post surgical care Discharge Diagnosis: Right hip s/p total hip replacement Activity: Per Instructions section Lifting: Wait until after follow-up appointment Bathing: Keep incision dry Bathing Comment: The silverlon dressing may be exposed in the shower, but do not soak it Sexual Activity: Wait until after follow-up appointment Exercise/Sports: Wait until after follow-up appointment Driving/Machine Use: No driving until cleared by Dr. Wren Weightbearing: Full weightbearing Non-emergency contact: Surgeon Call non-emergency contact if: you have any medication questions, your pain is not controlled, your temperature is above 101, your wound has increased redness, your wound has increased drainage and your wound pain has increased Follow-up/Referrals: Rosie Coulter CRNP [Primary Care Provider] - Diet: Regular Addtl Attending Provider Instructions: Post-operative Instructions Dear Patient and Family/Friends, Before you are discharged from the hospital, it is important to know what to expect when you get home after surgery. To that end, we have created this sheet of discharge instructions which covers many commonly asked questions. Make sure you go through this sheet in its entirety with your nurse before you are discharged. Please note that we will go over the specifics of your surgery and recovery when you return for your first post-operative visit. Sincerely, Dr. Wren Medications 1. Oxycodone 5 mg tablet: Take 1-2 tabs every 4-6 hours as needed for pain. A prescription for this medication was sent to your pharmacy 2. Diclofenac sodium 75 mg tablet: Take 1 tab twice daily for postoperative pain and inflammation relief. A prescription for this medication will be sent to your pharmacy with 1 refill. 3. Aspirin 81 mg tablet: Take 1 tab twice daily for the first 30 days postoperatively for blood clot prevention. Please purchase this medication. 4. Extra strength Tylenol 500 mg tablet: Take 2 tabs every 6-8 hours as needed for additional pain relief. Please purchase this medication Pain Expect to be in a fair amount of pain after surgery. Remember, our goal is not to eliminate your pain, but to make it tolerable. It is a good idea to stay ahead of your pain by taking the medications you were prescribed once you get home. Typically, the pain starts improving 3-7 days after surgery. You should start weaning off the narcotic pain medication (oxycodone, hydrocodone) as soon as your pain improves. Please call our office if your pain is not adequately controlled. Ice Ice your operative site at least 5 times a day for 15-30 minutes at a time. Make sure you have a thin cloth between the ice or cooling unit and your skin to prevent saul bite. This is especially important if you received a nerve block. Continue icing your operative site for the first 5-7 days after surgery, then as needed. Diet/Nausea/Vomiting Start by drinking clear liquids and eating crackers. If you can tolerate this, then you may resume your normal diet. If you feel nauseated or vomit, take Zofran/ondansetron (if prescribed). Please call our office if you have intractable nausea or vomiting, or, if after hours, you may go to the Emergency Room for help. Constipation Constipation is a common side effect of narcotic pain medication. If you have not had a bowel movement within 2 days after surgery, we recommend purchasing an over the counter laxative such as Milk of Magnesia, Dulcolax, or Miralax from a local pharmacy, and taking it as instructed. Call our clinic if any questions. Slings and Braces If you were placed in a sling or brace, it must be worn at all times, including sleep. You may remove your sling or brace for physical therapy, home exercises, and showering. The length of time you will be in your brace and range of motion restrictions depends on what surgery you had; these details will be reviewed at your first post-operative appointment. Nerve block The anesthesia team sometimes places a nerve block to help with post-operative pain control. This results in significant numbness and inability to move the extremity. The nerve block usually wears off in 8-12 hours, but sometimes can last up to 24 hours. Please call our office if you are still unable to move your extremity after 24 hours, unless you received a pain pump to take home. Nerve blocks typically wear off quickly, so start taking pain medication as soon as you start feeling soreness near your surgical site. Weight bearing and Range of Motion. You may bear weight through your operative extremity immediately after surgery. If you are in a knee brace, keep it locked in place until your follow-up. We will discuss your weight bearing, range of motion, and lifting restrictions in detail at your first post-operative appointment. Physical therapy You will be given a prescription for physical therapy or occupational therapy at your first post-operative appointment. Typically, patients start therapy within 1 week of surgery Wound care and showering We will inspect your wound at your first post-operative visit, and may do a dressing change at that time. Most patients will be in a water-proof dressing that is removed 14 days after surgery. It is normal to see some dried blood on the dressing. Do not remove your dressing, paper strips or sutures yourself unless you are given permission. Showering is allowed the day after surgery. Do not scrub or remove any dressings. The wound should not be submerged underwater (i.e. in a bathtub or pool) until 4 weeks after surgery ALBERTINA stockings If you were given white stockings, these are to be worn at all times except to shower (on both legs) for the first 2 weeks after surgery. Driving You may not drive while taking narcotic pain medication or while in a cast, splint, sling or brace. You, the patient, need to make the final determination about when you are safe to drive, however, the earliest you may consider driving after surgery is below: Hand/Wrist/Elbow Surgery: 3 days Shoulder Surgery: 2 weeks Hip,/Knee/Ankle Surgery: 4 weeks Fracture repair: 6 weeks Return to Work Your return to work depends on what surgery was done and what type of work you do. Please bring any paperwork your employer needs completed to your first post-operative visit. Also, bring a description of your job duties, as this helps us to understand what risks you may face at work. Travel Avoid long distance travel (greater than 1 hour) in airplanes and cars for the first 6 weeks after surgery. If you must travel, you need to have a Doppler ultrasound done before you travel to rule out a blood clot in your legs. Follow-up You should have a follow-up appointment already scheduled 1-2 days after surgery. If not, please contact our office to make this appointment before you leave the hospital. When to call the office It is normal to have swelling and bruising in the limb that was operated on. This will improve with time. It is also normal to have fevers for the first 2 days after surgery. Reasons you should call your doctor include: Uncontrolled pain; Nausea, vomiting, or constipation that does not improve with medication; Fevers over 101.5, chills, sweats; Drainage or bleeding from the wound; Foul odor; Spreading areas of redness; Any other concerns Pending Studies at Discharge: No Stand-Alone Forms: My [facility], Smoking Cessation Medications and DC Order Prescriptions: New acetaminophen [Tylenol Extra Strength] 500 mg Tablet 1,000 mg PO Q8 30 Days Qty: 180 0RF aspirin 81 mg capsule 81 mg PO BID 30 Days Qty: 60 0RF oxycodone 5 mg tablet 5 mg PO Q4H Qty: 28 0RF diclofenac sodium 75 mg tablet,delayed release (DR/EC) 75 mg PO BID 30 Days Qty: 60 1RF Continued cyclobenzaprine 10 mg tablet 10 mg PO TID PRN (Reason: muscle spasm) Qty: 15 0RF pregabalin [Lyrica] 50 mg Capsule 50 mg PO TID Discontinued hydrocodone-acetaminophen 5-325 mg tablet 1 tab PO Q6H PRN (Reason: pain, severe) Qty: 12 0RF naproxen 250 mg Tablet 250 mg PO BID PRN (Reason: Pain) Discharge Orders: Discharge Order (Routine); Ordered 05/04/22 Ordered By: Neville Aden Admission Data Admit Date/Time: 05/03/22 09:08 Attending Provider: Jamie Wren Admit Provider: Jamie Wren Primary Care Provider: Rosie Coulter Other Providers: [facility],Home Health
== END 2022-05-04 11:49 | disposition home health service (06) ==
LOC: ASU 05:11 → 3E 05:11
DX: Z79.899 Other long term (current) drug therapy; M17.11 Unilateral primary osteoarthritis, right knee; Z88.5 Allergy status to narcotic agent

== ENCOUNTER 2024-04-30 05:06 | Observation (INO) ==
--- NOTE | 2024-03-25 11:16 | PAT Medication Instructions ---
Medication Instructions Date of Service March 25, 2024 Home Medications Medication Instructions Recorded cyclobenzaprine 10 mg tablet 10 mg PO TID PRN muscle spasm #15 11/18/18 tabs cyclobenzaprine 10 mg tablet 10 mg PO TID PRN muscle spasm semaglutide (weight loss) 1 mg/0.5 mL subcutaneous pen injector (Wegovy) 1 mg subcut Q7D Take morning of surgery With a small sip of water, OTHERWISE NOTHING TO EAT OR DRINK AFTER MIDNIGHT: cyclobenzaprine 10 mg tablet 10 mg PO TID PRN muscle spasm (if needed) Take evening before surgery cyclobenzaprine 10 mg tablet 10 mg PO TID PRN muscle spasm (if needed) STOP 7 days prior to surgery semaglutide (weight loss) 1 mg/0.5 mL subcutaneous pen injector (Wegovy) 1 mg subcut Q7D Other Notes If you have any questions please call us at [phone] or [phone] or [phone] or [phone]
--- NOTE | 2024-03-30 14:00 | Anesthesiology Consultation ---
Date of Service March 30, 2024 Assessment & Plan (1) Encounter for pre-operative examination: - Outpatient joint pathway: Per OR booking comments, plan for outpatient joint program. Patient seen at [facility] 03/30/24. Patient is an acceptable candidate to proceed as planned outpatient joint pathway pending perioperative course/PCP preop evaluation. Surgeon's office arranging post-op home management. - Semaglutide instructions: Patient takes for weight loss. Patient informed by [facility] to stop 7 days prior to surgery- voiced understanding. DOS 04/30/24. Advised last dose to be 04/23/24. - Recent injury: Patient states she was sitting in a chair 03/27/24 when due to mechanical error, the chair fell backwards. Patient hit head on carpeted floor. Denies associated including LOC, N/V, dizziness, altered mental status. She states she had a headache for a few hours following injury which resolved. Complains of ongoing right sided neck/RUE pain since fall. States she did not have ER evaluation or seek medical attention after the fall. Surgeon's office aware and ordered clavicle x-ray for further evaluation 03/31/24- No evidence of acute fracture, dislocation, or significant soft tissue abnormalities. Patient advised recommendation for ER evaluation given head trauma without evaluation- patient refuses. Educated on red flag symptoms/ER recommendation- patient voiced understanding. Patient requests deferral to PCP if anything further needed from their perspective. Note written to PCP regarding recent fall- Awaiting response + surgeon-ordered PCP preop evaluation (Rosie ISBELL, appt 04/23). Chart Review Chart Review: Patient seen in Pre Admission Testing Teaching & Discussion Pre-Anesthesia Teaching/Discussion Notes: Instructed NPO after midnight before surgery,except medications with 15 cc of water. Medication instructions provided according to the [facility] guidelines. History Surgery Operation Date: 04/30/24 09:05 Proposed Procedures p Left Total Knee Arthroplasty - Jamie Wren MD Height/Weight Height: 5 ft 7 in Weight: 78.9 kg Allergies Allergy/AdvReac Type Severity Reaction Status Date / Time morphine AdvReac Mild Nausea Verified 03/25/24 07:31 Medications Home Medications Medication Instructions Recorded Confirmed Last Taken cyclobenzaprine 10 mg tablet 10 mg PO TID PRN muscle spasm #15 07/16/19 11/20/24 12/25/22 tabs semaglutide (weight loss) 1 mg/0.5 1 mg subcut Q7D 03/25/24 03/25/24 Unknown mL subcutaneous pen injector (Chon) Past Medical History Medical History (Updated 03/30/24 @ 15:41 by Sandra Sharpe) Asthma Per PCP records - no isses, per pt. DDD (degenerative disc disease), cervical C5-C6- has herniated disc, needs surgery, slightly limited rom- seeing Dr. Gruber History of COVID-19 (03/2023) Mild, no issues since History of ITP Happened after cortisone injection > had 5 units of platelets transfused (2011) No issues since Hyperlipidemia Per PCP records Hypertension Per PCP records Lumbar spondylosis Past Surgical History Surgical History (Updated 03/30/24 @ 14:53 by Sandra Sharpe) History of nasal surgery x2 History of partial hysterectomy Hx of cholecystectomy Hx of colonoscopy Hx of eye surgery left eye, cornea erosion Hx of hand surgery left ring finger partial amputation Hx of hysterectomy Nausea and vomiting after administration of anesthetic agent Status post total hip replacement, right (2021) Past Anesthesia History No Family Hx of Anesthesia Complications and Other (Hypotension after Right DENNISE/neuraxial anesthesia) History of PONV No Hx of Motion Sickness and History of PONV Social History Smoking Status: Never smoker Do You Dip or Chew Tobacco: No Hx Alcohol Use: Yes alcohol intake frequency: a few times a week Hx Substance Use: No substance use type: does not use Review of Systems Patient denies chest pain, shortness of breath, dyspnea on exertion, fever, chills, cough, wheezing, palpitations. Physical Exam Vital Signs BP 99/66 P 81 TEMP 98.5 SP02 95%RA RESP 16 Physical Full cervical extension range of motion. Full TMJ range of motion. TMD 3 finger breaths Mallampati Score I Dentition: intact, upper/lower braces Lungs: clear throughout to auscultation Cardiac: regular rate and rhythm, no murmurs noted Spine: normal Carotid arteries: negative bruit Extremities: no LE edema, left ring finger partial amputation Lab Results Anesthesia Preop Results Results Anesthesia Widget: WBC 5.23 K/ul (4.8-10.8) 03/30/24 Hgb 13.0 g/dl (12.0-16.0) 03/30/24 Hct 40.1 % (37.0-47.0) 03/30/24 Plt 259 K/uL (130-400) 03/30/24 Na 143 mmol/L (136-145) 03/30/24 K 4.1 mmol/L (3.5-5.1) 03/30/24 Cl 110 mmol/L (98-107) H 03/30/24 CO2 30 mmol/L (21-32) 03/30/24 BUN 13 mg/dl (6-23) 03/30/24 Creat 0.69 mg/dl (0.6-1.2) 03/30/24 Glucose Level 90 mg/dl (70-99(Fasting)) 03/30/24 PT 10.3 Seconds (9.0-12.0) 03/30/24 PTT 26 Seconds (21-31) 03/30/24 INR 0.9 (0.9-1.1) 03/30/24 Urine Color Yellow 03/30/24 Urine Appearance Clear (Clear) 03/30/24 Urine pH 5.5 (4.5-7.5) 03/30/24 Urine Specific [place] 1.026 (1.000-1.030) 03/30/24 Urine Protein Negative (Negative) 03/30/24 Urine Glucose (UA) Negative (Negative) 03/30/24 Urine Ketones 1+ (Negative) H 03/30/24 Urine Blood Trace (Negative) H 03/30/24 Urine Nitrite Negative (Negative) 03/30/24 Urine Bilirubin Negative (Negative) 03/30/24 Urine Urobilinogen Negative (Negative) 03/30/24 Urine Leukocyte Esterase Negative (Negative) 03/30/24 Urine WBC (Auto) 0-5 /hpf (0-5) 03/30/24 Urine RBC (Auto) 3-5 /hpf (0-2) H 03/30/24 Urine Hyaline Casts (Auto) 0-2 /lpf (0-2) 03/30/24 Urine Epithelial Cells (Auto) 0-2 /hpf (0-2) 03/30/24 Urine Bacteria (Auto) None Seen (None Seen) 03/30/24 Blood Type A Positive 03/30/24 Antibody Screen NEGATIVE 03/30/24 Testing Laboratory Results Urine culture (03/30/24): pending Electrocardiogram Date: 07/18/23 NSR at 64bpm. "Normal ECG" Stress Test Date: 03/15/22 Negative pharmacologic stress echocardiogram EKG for ischemia at 90% MPHR. Baseline echo: Normal LV size and systolic function with no regional wall motion abnormalities. EF 65%. No LVH. Other Testing Clavicle x-ray Date: 03/30/24 IMPRESSION: 1. No evidence of acute fracture, dislocation, or significant soft tissue abnormalities. 2. Acromioclavicular osteoarthritis Disclaimer: A subtle bone abnormality or fracture may not be readily apparent on X-rays, thus clinical correlation and further imaging including follow-up CT, MRI, or follow-up X-rays are advised as needed.
--- NOTE | 2024-04-10 16:30 | History & Physical Report ---
Date of Service April 10, 2024 Assessment & Plan (1) Osteoarthritis of left knee: Plan: PRE-OP Diagnosis: Left knee osteoarthritis Planned Procedure: Left total knee arthroplasty Plan: Patient is scheduled to undergo this procedure at the [facility] with Dr. Wren on April. Risks and complications of the procedure such as: Infection, bleeding, pain, scarring, nerve blood vessel damage, weakness, wound problems, stiffness, incomplete relief of symptoms, hardware failure, hardware loosening, wear, fracture, tendon or ligament injury, blood clots, embolism, cardiac, stroke and were explained to the patient at her visit today and informed consent for the procedure was obtained. We will need to obtain preoperative medical clearance from the patient's primary care provider. She has a's appointment scheduled for April 23 at 2:45 PM. Patient has already met with anesthesia on March 30 and while at the hospital she will obtained a CBC with differential, complete metabolic panel, PT/INR, blood type and screen, urinalysis, urine culture and sensitivity, EKG and a nasal culture for MRSA. During today's visit we reviewed the total knee packet. I provided the patient with paperwork to obtain obtaining a handicap placard for her vehicle. I provided her with information about lectures offered by [facility] in regards to joint replacement surgery. Patient states she does have a walker, raised toilet seat and a shower bench from her previous hip replacement surgery. We discussed discharge planning from the hospital. Patient states she will most likely do in-home physical therapy for the first 2 weeks before transitioning to outpatient physical therapy. I advised the patient that she will be provided with a prescription for narcotic pain medication for postoperative pain control. We will have her on aspirin twice daily for the first 30 days postoperatively for blood clot prevention. Patient verbalized understanding of all information provided during today's visit. Patient be scheduled for 2-week postoperative follow-up visit with myself on May 23, 2024. This chart was completed utilizing [employer] voice recognition software. Grammatical errors, random word insertions, pronoun errors, and in complete sentences are an occasional consequence of the system. Any questions or concerns about the content, text, or information contained within the body of this dictation should be addressed directly to the physician for clarification. History of Present Illness Chief Complaint: Chief Complaint: Left knee pain Primary Care Provider: SUKHI García History of Present Illness (including history relevant to procedure): This 58-year-old female presents to the clinic today for preoperative history and physical. Patient complains of a 2-year history of left knee pain that is primarily medial sided. She does experience intermittent episodes of swelling. She states she was not able to receive steroid injections because of her platelet count. She also was not able to afford hyaluronic acid injections. She has done some physical therapy and used oral nonsteroidal agents without relief her symptoms. Patient is electing proceed with surgical intervention. Review Of Systems: A 12 point review of systems performed is unremarkable except for those things stated in the HPI and past medical history. Past Medical History: Problems: Arthritis of right hip Right hip pain Saddle anesthesia Sinusitis Vazquez's neuroma of right foot Right carpal tunnel syndrome Tarsal tunnel syndrome of right side Right lumbar radiculopathy Right lateral epicondylitis Right cervical radiculopathy Cervical disc disease Radicular syndrome of left leg Lumbar disc disease Lumbar spondylolysis Hyperlipidemia Weight disorder Lichen simplex chronicus Endometriosis Asthma Chronic low back pain Hyperlipidemia Dry eyes Environmental allergies Procedure History Procedure Procedure Date Comments Amputated ring finger Cholecystectomy BRUNA - Total abdominal hysterectomy and bilateral salpingo-oophorectomy sinus surgery tubal ligation Hip arthroplasty 05/03/2022 - Right total hip arthroplasty. THR - Total hip replacement 05/03/2022 - right CT of paranasal sinuses 08/31/2021 - Postoperative change and mild paranasal sinus disease as above. CT of abdomen and pelvis 05/24/2021 - 1) Interval resolution of the mesenteric infiltration/panniculitis. 2) Stable subcentimeter mesenteric lymph nodes. These do not meet CT creiteria for pathologic involvement. 3) Additional findings as described above. CT of abdomen and pelvis 02/22/2021 - Interval improvement in mesenteric fat stranding and mesenteric lymphadenopathy compatible with improving mesenteric panniculitis. Mammogram 02/27/2020 - No mammographic evidence of malignancy Colonoscopy 01/01/2020 - Repeat in 10 years. - impression:-the ecamined portion of the ileum was [id number] internal hemorrhoids-no specimens collected Mammogram 02/06/2019 - IMPRESSION: ACR BI-RADS CATEGORY 1: NEGATIVE There is no mammographic evidence of malignancy. A one year screening is recommended. Mammogram 02/05/2018 - wnl Mammogram 12/26/2016 - no mammographic evidence of malignancy. REPAIR OF NASAL SEPTUM 11/02/2016 - EEndoscopic sinus surgery, B Mammogram 11/16/2015 - There is no mammographic evidence of malignancy. A 1 year screening mammogram is recommended. CT - Computerized tomography 07/07/2015 - abdomen and pelvis CT with and without iv contrast,urogram protocol Allergies and Sensitivities: NKA Current Home Meds: (Last Updated 04/10 12:58) ciclopirox topical (Penlac Nail Lacquer 8% topical solution) 1 appl topical Daily cyclobenzaprine (cyclobenzaprine 10 mg oral tablet) 1 tab PO qhs PRN: NEEDED FOR PAIN meclizine (meclizine 25 mg oral tablet) 25 mg PO tid PRN: as needed for dizziness omeprazole (omeprazole 20 mg oral delayed release capsule) 1 cap PO Daily ondansetron (Zofran ODT 4 mg oral tablet, disintegrating) 4 mg PO tid PRN: as needed for nausea/vomiting semaglutide (Wegovy (1 mg dose) subcutaneous solution) 1 mg subQ q7days semaglutide (Wegovy (0.5 mg dose) subcutaneous solution) 0.5 mg subQ q7days Initial Wt: 04/10 75.9 kg 167 lb Allergies Allergy/AdvReac Type Severity Reaction Status Date / Time morphine AdvReac Mild Nausea Verified 03/25/24 07:31 Home Medications Medication Instructions Recorded Confirmed Type cyclobenzaprine 10 mg tablet 10 mg PO TID PRN muscle spasm #15 11/18/18 03/25/24 Rx tabs semaglutide (weight loss) 1 mg/0.5 1 mg subcut Q7D 03/25/24 03/25/24 History mL subcutaneous pen injector (Wegovy) Past Med/Surg History Problem List (Updated 04/10/24 @ 16:29 by Neville Aden PA-C) Osteoarthritis of left knee Encounter for pre-operative examination Medical History (Updated 04/10/24 @ 16:29 by Neville Aden PA-C) Lumbar spondylosis DDD (degenerative disc disease), cervical C5-C6- has herniated disc, needs surgery, slightly limited rom- seeing Dr. Gruber Asthma Per PCP records - no isses, per pt. Hyperlipidemia Per PCP records Hypertension Per PCP records History of ITP Happened after cortisone injection > had 5 units of platelets transfused (2011) No issues since History of COVID-19 (03/2023) Mild, no issues since Surgical History (Updated 03/30/24 @ 14:53 by Sandra Sharpe) Nausea and vomiting after administration of anesthetic agent Status post total hip replacement, right (2021) History of nasal surgery x2 Hx of colonoscopy Hx of eye surgery left eye, cornea erosion History of partial hysterectomy Hx of hysterectomy Hx of hand surgery left ring finger partial amputation Hx of cholecystectomy Social History Smoking Status: Never smoker Second Hand Exposure: No; Do You Dip or Chew Tobacco: No; Hx Alcohol Use: Yes Hx Substance Use: No Preferred Language: Estonian Communication Ability: Effective Food Assembler Required: No Beliefs That Will Affect Care: None marital status: Current Living Situation: Spouse current occupational status: employed Feels Safe at Home: Yes Assistive Devices: Other Physical Exam Physical Exam: Physical Exam: (relevant to the procedure, including heart and lung evaluation) General: Alert and oriented x 3 with proper grooming and hygiene Eyes: Pupils are equal reactive to light with accommodation. Extraocular movements are intact. Dentition is appropriate. Patient has braces Throat: Posterior oropharynx clear with absence of edema, erythema or exudate Cardiac: Regular rate and rhythm with no murmurs or gallops appreciated Lungs: Clear to auscultation throughout with no wheezing, rales or rhonchi Abdomen: Mildly obese, nondistended, nontender with NABS Extremities: Left knee: Range of motion is from 6 degrees of extension to approximately 100 degrees of flexion. She experiences medial and lateral joint tenderness when the knee is palpated in flexed position. There is audible crepitation with passive range of motion. I was able to slightly manipulate her patella with palpable crepitation. She had no laxity with varus or valgus stressing. AP drawer sign and Kev test were negative. However patient does have an antalgic gait. She is neurovascularly intact in the left lower extremity. Neuro: Cranial nerves II through XII are intact no motor or sensory deficit Skin: Normal in appearance with no open skin areas or discharge Results & Data Diagnostic Findings Studies (relevant to the procedure): X-Rays of the left knee which showed Tri-compartmental osteophytes. Near [id number] arthritis in medial compartment
--- OUTSIDE RECORDS SUMMARY | 2024-04-30 05:11 | External Medical Summary ---
Author Name Unknown Address Unknown Organization : Laboratory Report Ordering Provider Test Date Status Napoleon Bhakta 04/24/2024 12:15:00 Final Observation Date Value Abnormality Reference (Units ) Status LDL Chol 04/26/2024 01:26:50 144 Above high normal (m g/dL (calc)) Final Reference range: <100
<b r/>Desirable range <100 mg/dL for primary prevention;
<70 mg/dL for patients with CHD or diabetic patients
with > or = 2 CHD risk factors.

LDL-C is now calculated using the Thad Carrillo
calculation, which is a validated novel method providing
better accuracy than the Friedewald equation in the
estimation of LDL-C.
Dawit SALAZAR et al. ISIS. 2013;310(19): 2061- 2068
(http://[employer]ugu[employer].Powelectrics/faq/MUT368)

Specimen Received d/t: 04/25/2024 08:39:00

Lab test performed by:
[facility], [facility]
[address]
[place] [address]
Max Chance MD Cholesterol in HDL [Mass/vol ume] in Serum or Plasma 04/26/2024 01:26:50 65 > OR = 50 (mg/dL) Final
Specimen Received d/t: 04/25/2024 08:39:00

Lab test performed by:
[facility], [facility]
[address]
[place] [address]
Max Chance MD Non HDL Chol 04/26/2024 01:26:50 160 Above high normal <130 (mg/dL (calc)) Final For patients with diabetes p domonique 1 major ASCVD risk
factor, treating to a non-HDL-C goal of <100 mg/dL
(LDL-C of <70 mg/dL) is considered a therapeutic
option.

Specimen Received d/t: 04/25/2024 08:39:00

Lab test performed by:
[facility], [facility]
[address]
[place] [address]
Max Chance MD Cholesterol [Mass/volume] in Serum or Plasma 04/26/2024 01:26:50 225 Above high normal <200 (mg/d L) Final
Specimen Received d/t: 04/25/2024 08:39:00

Lab test performed by:
[facility], [facility]
[address]
[place] [address]
Max Chance MD Triglyceride [Mass/volume] i n Serum or Plasma 04/26/2024 01:26:50 66 <150 (mg/dL) Final
Specimen Received d/t: 04/25/2024 08:39:00

Lab test performed by:
[facility], [facility]
[address]
[place] [address]
Max Chance MD Cholesterol.total/Cholestero l in HDL [Mass Ratio] in Serum or Plasma 04/26/2024 01:26:50 3.5 <5 .0 ((calc)) Final
Specimen Received d/t: 04/25/2024 08:39:00

Lab test performed by:
[facility], [facility]
[address]
[place] [id number]
Max Chance MD Performing Location
--- OUTSIDE RECORDS SUMMARY | 2024-04-30 05:11 | External Medical Summary | Continuity of Care Document ---
Author Name Unknown Organization [address] Address [address] [place] [address] [phone] Care Team Providers Care Foam Molder Name Role Phone Rosie Coulter Primary Care Physician [phone] Encounter [facility] [id number] Date(s): 04/24/24 - 04/24/[address] [place] [id number] [facility] [address] [place] [address] [phone] Encounter Diagnosis Body mass index [BMI] 25.0-25.9, adult(Discharge Diagnosis) - 04/24/24 Pre-op exam(Discharge Diagnosis) - 04/24/24 Skin rash(Discharge Diagnosis) - 04/24/24 HLD (hyperlipidemia)(Discharge Diagnosis) - 04/24/24 Ground-level fall(Discharge Diagnosis) - 04/24/24 Discharge Disposition: Home or Self Care Attending Physician: SUKHI Bender Katy Marie Referring Physician: SUKHI Bender Katy Marie Allergies, Adverse Reactions, Alerts No Known Allergies Assessment and Plan Extracted from: Title:Pre-Op Author:SUKHI Bender Katy Marie Date:04/24/24 1.Pre-op exam Problem isAcute Goal:resolution Plan: reviewed labs, EKG from [facility] update fasting lipids today She notes that she discussed hypotensive reaction and nausea with anesthesia We discussed the risks and benefits of surgery, patient has voiced understanding. After careful consideration and examination there are no major contraindications for surgery and this patient is understanding of the risks associated with surgery. 2.Ground-level fall Fall occurred before pre-op testing and she was having headaches after. Since her symptoms have resolved. This was nearly 4 weeks ago.No focal neuro deficits that raise concern at this time. She did not seek emergent care for this injury. PSSM ordered clavicle XR. Patient verbalizes understanding and agrees with jorge well asreturn precautions. Immunizations Given and Recorded Vaccine Date Status Refusal Reason tetanus/diphtheria/pertuss, acel (Tdap) 04/16/22 G iven tetanus/diphtheria/pertuss, acel (Tdap) 06/14/05 R ecorded influenza virus vaccine, inactivated 01/16/22 Give n SARS-CoV-2 (COVID-19) mRNA BNT-162b2 vax 1 08/10/20 Recorded SARS-CoV-2 (COVID-19) mRNA BNT-162b2 vax 2 07/18/20 Recorded 1Result Comment: 2021-01-01: Historical information-source unspecified 2Result Comment: 2021-01-01: Historical information-source unspecified Medications cyclobenzaprine 10 mg oral tablet Start: 04/07/24 7:57:00 AM EST, 1 tab, PO, qhs, Disp# 30 tab, Refills: 1, PRN: NEEDED FOR PAIN, Pharmacy: [id number] Start Date: 04/07/24 Status: Ordered meclizine 25 mg oral tablet Start: 07/18/23 9:23:00 AM EDT, 1 tab, PO, tid, Disp# 12 tab, PRN: as needed for dizziness, Pharmacy: [id number] Start Date: 07/18/23 Status: Ordered omeprazole 20 mg oral delayed release capsule Start: 06/04/23 2:13:00 PM EST, 1 cap, PO, Daily, Disp# 30 cap, Refills: 5, Pharmacy: [id number] Start Date: 06/04/23 Status: Ordered Penlac Nail Lacquer 8% topical solution Start: 12/25/22 9:33:00 AM EDT, 1 appl, topical, Daily, Disp# 6.6 mL, Refills: 3, Pharmacy: [id number] Start Date: 12/25/22 Stop Date: 08/30/26 Status: Ordered triamcinolone 0.025% topical cream Start: 04/24/24 8:05:00 AM EST, 1 appl, topical, bid, Disp# 60 g, Refills: 2, Pharmacy: [id number] Start Date: 04/24/24 Stop Date: 05/15/24 Status: Ordered Wegovy (0.5 mg dose) subcutaneous solution Start: 02/21/24 11:54:00 AM EDT, 0.5 mg =, subQ, q7days, Disp# 2 mL, Refills: 1, Pharmacy: [id number] Start Date: 02/21/24 Status: Ordered Wegovy (1 mg dose) subcutaneous solution Start: 01/16/24 3:44:00 PM EDT, 1 mg =, subQ, q7days, Disp# 2 mL, Refills: 2, Pharmacy: [id number] Start Date: 01/16/24 Status: Ordered Zofran ODT 4 mg oral tablet, disintegrating Start: 07/18/23 9:23:00 AM EDT, 1 tab, PO, tid, Disp# 12 tab, PRN: as needed for nausea/vomiting, Pharmacy: [id number] Start Date: 07/18/23 Status: Ordered Mental Status 04/24/24 Barriers to Learning one year None evide nt Mandatory Health Literacy Documentation Yes Health Literacy Communication Barriers N ever Primary Language Faroese Problem List Condition Confirmation Course Effective Dates Status H ealth Status Informant Arthritis of right hip Confirmed Active Asthma Confirmed Active Right carpal tunnel syndrome Confirmed Active Cervical disc disease Confirmed Active Right cervical radiculopathy Confirmed Active Chronic low back pain Confirmed Active Lumbar disc disease Confirmed Active Dry eyes Confirmed Active Endometriosis Confirmed Active Environmental allergies Confirmed Active Right hip pain Confirmed Active Hyperlipidemia Confirmed Active Hyperlipidemia Confirmed Active Right lateral epicondylitis Confirmed Active Lichen simplex chronicus Confirmed Active Right lumbar radiculopathy Confirmed Active 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 Radicular syndrome of left leg Confirmed Active Tarsal tunnel syndrome of right side Confirmed Active Saddle anesthesia Confirmed Active Lumbar spondylolysis Confirmed Active Weight disorder Confirmed Active Diagnosis Diagnosis Type Effective Dates Health Status Cl inical Service Informant Body mass index [BMI] 25.0-25.9, adult Discharge Diagnosis 04/24/24 Non-Specified Skin rash Discharge Diagnosis 04/24/24 Non-Specified Ground-level fall Discharge Diagnosis 04/24/24 Non-Specified Pre-op exam Discharge Diagnosis 04/24/24 Non-Specified HLD (hyperlipidemia) Discharge Diagnosis 04/24/24 Non-Specified Procedures Procedure Date Related Diagnosis Body Site Status Hip arthroplasty 1 05/03/22 Comple adriana THR - Total hip replacement 2 05/03/[address] of paranasal sinuses 3 08/31/[address] of abdomen and pelvis 4 05/24/[address] of abdomen and pelvis 5 02/22/21 Completed Mammogram 6 02/27/20 Completed Colonoscopy 7, 8 01/01/20 Complete d Mammogram 9 02/06/19 Completed Mammogram 10 02/05/18 Completed Mammogram 11 12/26/16 Completed REPAIR OF NASAL SEPTUM 12 11/02/16 Completed Mammogram 13 11/16/[address] - Computerized tomography 14 07/07/15 Completed Amputated ring finger Com pleted Cholecystectomy Completed sinus surgery Completed BRUNA - Total abdominal hyster ectomy and bilateral salpingo-oophorectomy Completed tubal ligation Completed 1Right total hip arthroplasty. 2right 3Postoperative change and mild paranasal sinus disease as above. 41) Interval resolution of the mesenteric infiltration/panniculitis. 2) Stable subcentimeter mesenteric lymph nodes. These do not meet CT creiteria for pathologic involvement. 3) Additional findings as described above. 5Interval improvement in mesenteric fat stranding and mesenteric lymphadenopathy compatible with improving mesenteric panniculitis. 6No mammographic evidence of malignancy 7impression: -the ecamined portion of the ileum was normal -non-bleeding internal hemorrhoids -no specimens collected 8Repeat in 10 years. 9IMPRESSION: ACR BI-RADS CATEGORY 1: NEGATIVE There is no mammographic evidence of malignancy. A one year screening is recommended. 10wnl 11no mammographic evidence of malignancy. 12EEndoscopic sinus surgery, B 13There is no mammographic evidence of malignancy. A 1 year screening mammogram is recommended. 14abdomen and pelvis CT with and without iv contrast,urogram protocol Results Laboratory List Name Date Lipid Panel. (Lipid Panel-ARLN) 04/24/24 Most recent to oldest [Reference Range]: 1 Triglycerides-QST [<150 mg/dL] 66 mg/dL 1 (04/24/24 8:11 AM) Non HDL Chol-QST [<130 mg/dL (calc)] 160 mg/dL (calc) 2 *HI* (04/24/24 8:11 AM) HDL Chol-QST [> OR = 50 mg/dL] 65 mg/dL 3 (04/24/24 8:11 AM) Chol/HDLC Ratio-QST [<5.0 (calc)] 3.5 (c alc) 4 (04/24/24 8:11 AM) Cholesterol-QST [<200 mg/dL] 225 mg/dL 5 *HI* (04/24/24 8:11 AM) LDL Chol-QST 144 mg/dL (calc) 6 *HI* (04/24/24 8:11 AM) 1Result Comment: Specimen Received d/t: 04/25/2024 08:39:00 [facility] [address] [place] [phone] Max Chance MD 2Result Comment: For patients with diabetes plus 1 major ASCVD risk factor, treating to a non-HDL-C goal of <100 mg/dL (LDL-C of <70 mg/dL) is considered a therapeutic option. Specimen Received d/t: 04/25/2024 08:39:00 Lab test performed by: [facility] [address] [place] [phone] Max Chance MD 3Result Comment: Specimen Received d/t: 04/25/2024 08:39:00 [facility] [employer] [phone] Max Chance MD 4Result Comment: Specimen Received d/t: 04/25/2024 08:39:00 Lab test performed by: [facility] [address] [place] [phone] Max Chance MD 5Result Comment: Specimen Received d/t: 04/25/2024 08:39:00 Lab test performed by: [facility] [address] [place] [phone] Jo Chance MD 6Result Comment: Reference range: <100 Desirable range <100 mg/dL for primary prevention; <70 mg/dL for patients with CHD or diabetic patients with > or = 2 CHD risk factors. LDL-C is now calculated using the Dawit-Carrillo calculation, which is a validated novel method providing better accuracy than the Friedewald equation in the estimation of LDL-C. Dawit SALAZAR et al. ISIS. 2013;310(33): 6526-4392 (http://education.Linqia/faq/HNH010) Specimen Received d/t: 04/25/2024 08:39:00 Lab test performed by: [facility], [facility] [employer] [address] [place] [phone] Max Chance MD Vital Signs Most recent to oldest [Reference Range]: 1 Height 170.5 cm (04/24/24 7:42 AM) Patient Weight 75.5 kg (04/24/24 7:42 AM) Body Mass Index 25.97 kg/m2 (04/24/24 7:42 AM) Temperature [36.5-37.9 DegC] 36.1 DegC *LOW* (04/24/24 7:42 AM) Heart Rate 89 bpm (04/24/24 7:42 AM) Blood Pressure 100/70mmHg (04/24/24 7:42 AM) Cuff Pulse Pressure 30 mmHg (04/24/24 7:42 AM) Social History Social History Type Response Smoking Status Never smoked cigaret amilcar Sex Female Sex Representation Female (finding) FCM Outpt Note * SUKHI Bender Katy Marie: PERFORM Event Display: FCM Outpt Note Authored Date: Chief Complaint Preop for complete left knee replacement 04/30. Needs triamcinolone ointment. History of Present Illness Per 04/10 ortho note had PAT testing I have been consulted by Dr. Slater evaluate this patient for a pre- operative exam. The procedure left total kneeis schedule for 04/30/2024. Cardiovascular Risk Factors: HLD Blood Thinners: none, has stopped NSAIDs Prior Anesthesia Reactions: nausea and hypotension Alcohol use: seldom use Tobacco use: none Substance use: none Review of Systems A total of 10 systems were reviewed. Pertinent positive and negatives addressed in HPI, all other findings are negative. Physical Exam Vitals & Measurements T:36.1C HR:89(Monitored) BP:100/70 SpO2:95% HT:170.5cm WT:75.5kg WT:75.500kg(Dosing) BMI:25.97 PHQ2 Data(Data Documented on:04/24/2024 07:41) Emotional health assessment NEGATIVE Constitutional: Alert and oriented, No acute distress, Well-appearing, Normal mood and affect Respiratory: Lung sounds are clear, equal chest rise and fall with breathing, no pursed lip breathing Cardiovascular: Heart sounds regular rate and rhythm, without gallop or murmur, no edema HEENT: Normocephalic, atraumatic, conjunctiva are clear, sclera non-icteric, EOM intact, hearing intact, Mucous membranes are moist Musculoskeletal: No weakness, normal gait, no atrophy or abnormal muscle tone Neurological: CN 2-12 grossly intact, sensation intact Skin: Warm, pink, dry, intact Assessment/Plan 1.Pre-op exam Problem isAcute Goal:resolution Plan: [facility] fasting lipids today She notes that she discussed hypotensive reaction and nausea with anesthesia We discussed the risks and benefits of surgery, patient has voiced understanding. After careful consideration and examination there are no major contraindications for surgery and this patient is understanding of the risks associated with surgery. 2.Ground-level fall Fall occurred before pre-op testing and she was having headaches after. Since her symptoms have resolved. This was nearly 4 weeks ago.No focal neuro deficits that raise concern at this time. She did not seek emergent care for this injury. PSSM ordered clavicle XR. Patient verbalizes understanding and agrees with jorge well asreturn precautions. Problem List/Past Medical History Ongoing Arthritis of right hip Asthma Cervical disc disease Chronic low back pain Dry eyes Endometriosis Environmental allergies Hyperlipidemia Hyperlipidemia Lichen simplex chronicus Lumbar disc disease Lumbar spondylolysis Vazquez's neuroma of right foot Radicular syndrome of left leg Right carpal tunnel syndrome Right cervical radiculopathy Right hip pain Right lateral epicondylitis Right lumbar radiculopathy Saddle anesthesia Tarsal tunnel syndrome of right side Weight disorder Resolved Acne Elevated cholesterol Hand pain, right Health maintenance alteration Herniated disc Idiopathic thrombocytopenic purpura Immunizations up to date Mesenteric panniculitis Right ankle sprain Right eye injury Procedure/Surgical History Hip arthroplasty| Service Date: 05/03/2022THR - Total hip replacement| Service Date: 05/03/2022T of paranasal sinuses| Service Date: 08/31/2021T of abdomen and pelvis| Service Date: 2CT of abdomen and pelvis| Service Date: 02/22/2021Mammogram| Service Date: 02/27/2020 Colonoscopy| Service Date: 01/01/2020Mammogram| Service Date: 02/06/2019Mammogram| Service Date: 02/05/2018Mammogram| Service Date: 12/26/2016REPAIR OF NASAL SEPTUM| Service Date: 11/02/2016Mammogram| Service Date: 11/16/2015CT - Computerized tomography| Service Date: 07/07/2015tubal ligationsinus surgeryTAH - Total abdominal hysterectomy and bilateral salpingo-oophorectomyCholecystectomyAmputated ring finger Medications ciclopirox topical(Penlac Nail Lacquer 8% topical solution), 1 appl, topical, Daily, 3 refills cyclobenzaprine(cyclobenzaprine 10 mg oral tablet), 1 tab, PO, qhs, PRN meclizine(meclizine 25 mg oral tablet), 25 mg= 1 tab, PO, tid, PRN omeprazole(omeprazole 20 mg oral delayed release capsule), 1 cap, PO, Daily ondansetron(Zofran ODT 4 mg oral tablet, disintegrating), 4 mg= 1 tab, PO, tid, PRN semaglutide(Wegovy (1 mg dose) subcutaneous solution), 1 mg, subQ, q7days, 2 refills semaglutide(Wegovy (0.5 mg dose) subcutaneous solution), 0.5 mg, subQ, q7days, 1 refills triamcinolone topical(triamcinolone 0.025% topical cream), 1 appl, topical, bid, 2 refills Allergies NKA Social History Smoking Status Never smoked cigarettes Alcohol Type:Beer Frequency:1-2 times per month Employment/School Status:Employed Work hazards:Heavy lifting/twisting, Loud noises, Repetitive motion 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 Health Status Family Member(s) Immunizations Vaccine Date Status tetanus/diphtheria/pertuss, acel (Tdap) 04/16/2022 Given influenza virus vaccine, inactivated 01/16/2022 Given SARS-CoV-2 (COVID-19) mRNA BNT-162b2 vax 08/10/2020 Recorded Comments : 2021-01-01: Historical information-source unspecified SARS-CoV-2 (COVID-19) mRNA BNT-162b2 vax 07/18/2020 Recorded Comments : 2021-01-01: Historical information-source unspecified influenza virus vaccine, inactivated - Not Given Comments : Charted on Incorrect Order tetanus/diphtheria/pertuss, acel (Tdap) 06/14/2005 Recorded Recommendations Health Maintenance Pending(in the next year) OverDue Adult Influenza Vaccine due11/03/23and every 1year Due Adult COVID-19 Vaccination due04/24/24Unknown Frequency Adult Social Determinants of Health Screening due04/24/24Unknown Frequency Pneumococcal Vaccine Adults and Adolescents with Chronic Illness due04/24/24One-time only Shingles Vaccine due04/24/24One-time only Satisfied(in the past 1 year) Satisfied Body Mass Index on04/24/24.Satisfied by CRISTO Manzano Angela Breast Cancer Screening on05/08/23.Satisfied by CRISTO Manzano Angela Electronic Signature on File Electronically Reviewed/Signed by: SUKHI Jensen Author Signature Dt/Tm:04/24/2024 08:26 AM Department of Family Medicine [facility] Patient Care team information Care Team Personnel Name: SUKHI Coulter Shari A Position: Nurse Pract - Family Med Member Role: Primary Care Provider Address: [address] [place] [address] Care Team Related Persons Name: LIA JONES Name: LIA JONES"
--- OUTSIDE RECORDS SUMMARY | 2024-04-30 05:11 | External Medical Summary | Continuity of Care Document ---
Author Name Unknown Organization [facility] [address] [place], [place] [address] Address [address] [place] [phone] Care Team Providers Care Fuel Storage Technician Name Role Phone Rosie Coulter Primary Care Physician [phone] Encounter [facility] [id number] Date(s): 04/10/24 - 04/10/24 [facility] [address] [id number] [facility] [address] [address] Encounter Diagnosis Preop examination(Discharge Diagnosis) - 04/10/24 Osteoarthritis of left knee(Discharge Diagnosis) - 04/10/24 Discharge Disposition: Home or Self Care Attending Physician: DANIEL Aden Dennis Referring Physician: MD Siena, Jamie Duenas Allergies, Adverse Reactions, Alerts No Known Allergies Immunizations Given and Recorded Vaccine Date Status [...] Refills: 1, PRN: NEEDED FOR PAIN, Pharmacy: [id number] Start Date: 04/07/24 Status: Ordered meclizine 25 mg oral tablet Start: 07/18/23 9:23:00 AM EDT, 1 tab, PO, tid, Disp# 12 tab, PRN: as needed for dizziness, Pharmacy: [id number] Start Date: 07/18/23 Status: Ordered omeprazole 20 mg oral delayed release capsule Start: 06/04/23 2:13:00 PM EST, 1 cap, PO, Daily, Disp# 30 cap, Refills: 5, Pharmacy: [id number] Start Date: 06/04/23 Status: Ordered Penlac Nail Lacquer 8% topical solution Start: 12/25/22 9:33:00 AM EDT, 1 appl, topical, Daily, Disp# 6.6 mL, Refills: 3, Pharmacy: [id number] Start Date: 12/25/22 Stop Date: 08/30/26 Status: Ordered Wegovy (0.5 mg dose) subcutaneous solution Start: 02/21/24 11:54:00 AM EDT, 0.5 mg =, subQ, q7days, Disp# 2 mL, Refills: 1, Pharmacy: [id number] Start Date: 02/21/24 Status: Ordered Wegovy (1 mg dose) subcutaneous solution Start: 01/16/24 3:44:00 PM EDT, 1 mg =, subQ, q7days, Disp# 2 mL, Refills: 2, Pharmacy: [id number] Start Date: 01/16/24 Status: Ordered Zofran ODT 4 mg oral tablet, disintegrating Start: 07/18/23 9:23:00 AM EDT, 1 tab, PO, tid, Disp# 12 tab, PRN: as needed for nausea/vomiting, Pharmacy: [id number] Start Date: 07/18/23 Status: Ordered Mental Status 04/10/24 Barriers to Learning one year None evide nt Mandatory Health Literacy Documentation Yes Health Literacy Communication Barriers N ever Primary Language American Problem List Condition Confirmation Course Effective Dates [...] tunnel syndrome of right side Confirmed Active Sinusitis Confirmed Active Saddle anesthesia Confirmed Active Lumbar spondylolysis Confirmed Active Weight disorder Confirmed Active Diagnosis Diagnosis Type Effective Dates Health Status Clinical Service Informant Osteoarthritis of left knee Discharge Diagnosis 04/10/24 Preop examination Discharge Diagnosis 04/10/24 Procedures Procedure Date Related Diagnosis Body Site [...] CT with and without iv contrast,urogram protocol Vital Signs Most recent to oldest [Reference Range]: 1 Height 168.5 cm (04/10/24 12:59 PM) Patient Weight 75.9 kg (04/10/24 12:59 PM) Body Mass Index 26.73 kg/m2 (04/10/24 12:59 PM) Heart Rate 110 bpm (04/10/24 12:59 PM) Blood Pressure 110/70mmHg (04/10/24 12:59 PM) Cuff Pulse Pressure 40 mmHg (04/10/24 12:59 PM) Social History Social History Type Response Smoking Status Never smoked cigaret amilcar Sex Female Sex Representation Female (finding) Pre-OP H & P * DANIEL Aden, Neville: PERFORM Event Display: Pre-OP H & P Authored Date: [id number] PRE-OPERATIVE HISTORY AND PHYSICAL Name: BLOSSOM JONES Patient Number: [id number] : 1965 Date of Service: 04/10/2024 PRE-OP Diagnosis: Left knee osteoarthritis Planned Procedure: Left total knee arthroplasty Chief Complaint: Left knee pain History of Present Illness (including history relevant to procedure): This 58-year-old female presents to the clinic today for preoperative history and physical. Patient complains of a 2-year historyof left knee pain that is primarily medial sided. She does experience intermittent episodes of swelling. She states she was not able to receive steroid injections because of her platelet count. She also was not able to afford hyaluronic acid injections. She has done some physical therapy and used oral nonsteroidal agents without relief her symptoms. Patient is electing proceed with surgical intervention. Review Of Systems: A 12 point review of systems performed is unremarkable except for those things stated in the HPI and past medical history. Past Medical History: Problems: Arthritis of right hip Right hip pain Saddle anesthesia Sinusitis Vazquez's neuroma of right foot Right carpal tunnel syndrome Tarsal tunnel syndrome of right side Right lumbar radiculopathy Right lateral epicondylitis Right cervical radiculopathy Cervical disc disease Radicular syndrome of left leg Lumbar disc disease Lumbar spondylolysis Hyperlipidemia Weight disorder Lichen simplex chronicus Endometriosis Asthma Chronic low back pain Hyperlipidemia Dry eyes Environmental allergies Procedure History Procedure Procedure Date Comments Amputated ring finger Cholecystectomy BRUNA - Total abdominal hysterectomy and bilateral salpingo-oophorectomy sinus surgery tubal ligation Hip arthroplasty 05/03/2022 - Right total hip arthroplasty. THR - Total hip replacement 05/03/2022 - right CT of paranasal sinuses 08/31/2021 - Postoperative change and mild paranasal sinus disease as above. CT of abdomen and pelvis 05/24/2021 - 1) Interval resolution of the mesenteric infiltration/panniculitis. 2) Stable subcentimeter mesenteric lymph nodes. These do not meet CT creiteria for pathologic involvement. 3) Additional findingsas described above. CT of abdomen and pelvis 02/22/2021 - Interval improvement in mesenteric fat stranding and mesenteric lymphadenopathy compatible with improving mesenteric panniculitis. Mammogram 02/27/2020 - No mammographic evidence of malignancy Colonoscopy 01/01/2020 - Repeat in 10 years. - impression:-the ecamined portion of the ileum was pflffr-yow-[id number] internal hemorrhoids-no specimens collected Mammogram 02/06/2019 - IMPRESSION: ACR BI-RADS CATEGORY 1: NEGATIVE There is no mammographic evidence of malignancy. A one year screening is recommended. Mammogram 02/05/2018 - wnl Mammogram 12/26/2016 - no mammographic evidence of malignancy. REPAIR OF NASAL SEPTUM 11/02/2016 - EEndoscopic sinus surgery, B Mammogram 11/16/2015 - There is no mammographic evidence of malignancy. A 1 year screening mammogram is recommended. CT - Computerized tomography 07/07/2015 - abdomen and pelvis CT with and without iv contrast,urogram protocol Allergies and Sensitivities: NKA Current Home Meds: (Last Updated 04/10 12:58) ciclopirox topical (Penlac Nail Lacquer 8% topical solution) 1 appl topical Daily cyclobenzaprine (cyclobenzaprine 10 mg oral tablet) 1 tab PO qhs PRN: NEEDED FOR PAIN meclizine (meclizine 25 mg oral tablet) 25 mg PO tid PRN: as needed for dizziness omeprazole (omeprazole 20 mg oral delayed release capsule) 1 cap PO Daily ondansetron (Zofran ODT 4 mg oral tablet, disintegrating) 4 mg PO tid PRN: as needed for nausea/vomiting semaglutide (Wegovy (1 mg dose) subcutaneous solution) 1 mg subQ q7days semaglutide (Wegovy (0.5 mg dose) subcutaneous solution) 0.5 mg subQ q7days Vitals: Last Updated 04/10/24 12:59 Weights: Last Updated 04/10/24 12:59 Date Temp Pulse BP RR SpO2 FIO2 Date Wt(kg) Wt(lb) 12 12:59 110 110/70 96 12 12:59 75.9 167 12 12:59 75.9 167 24 Hr Tmax: No Data Available Initial Wt: 04/10 75.9 kg 167 lb Physical Exam: (relevant to the procedure, including heart and lung evaluation) General: Alert and oriented x 3 with proper grooming and hygiene Eyes: Pupils are equal reactive to light with accommodation. Extraocular movements are intact. Dentition is appropriate. Patient has braces Throat: Posterior oropharynx clear with absence of edema, erythema or exudate Cardiac: Regular rate and rhythm with no murmurs or gallops appreciated Lungs: Clear to auscultation throughout with no wheezing, rales or rhonchi Abdomen: Mildly obese, nondistended, nontender with NABS Extremities: Left knee: Range of motion is from 6 degrees of extension to approximately 100 degreesof flexion. She experiences medial and lateral joint tenderness when the knee is palpated in flexedposition. There is audible crepitation with passive range of motion. I was able to slightly manipulate her patella with palpable crepitation. She had no laxity with varus or valgus stressing. AP drawer sign and Kev test were negative. However patient does have an antalgic gait. She is neurovascularly intact in the left lower extremity. Neuro: Cranial nerves II through XII are intact no motor or sensory deficit Skin: Normal in appearance with no open skin areas or discharge Studies (relevant to the procedure): X-Rays of the left knee which showed Tri-compartmental osteophytes. Near ddep-[id number] arthritis in medial compartment Plan: Patient is scheduled to undergo this procedure at the [facility] with Dr. Wren on April. Risks and complications of the procedure such as: Infection, bleeding, pain, scarring, nerve blood vessel damage, weakness, wound problems, stiffness, incomplete relief of symptoms, hardware failure, hardware loosening, wear, fracture, tendon or ligament injury, blood clots, embolism, cardiac, stroke and were explained to the patient at her visit today and informed consent for the procedure was obtained. We will need to obtain preoperative medical clearance from the patient's primary care provider. She has a's appointment scheduled for April 23 at 2:45 PM. Patient has already met with anesthesia on March 30 and while at the hospital she will obtained a CBC with differential, complete metabolic panel, PT/INR, blood type and screen, urinalysis, urine culture and sensitivity, EKG and a nasal culture for MRSA. During today's visit we reviewed the total knee packet. I provided the patient with paperwork to obtain obtaining a handicap placard for her vehicle. I provided her with information about lectures offered by [facility] in regards to joint replacement surgery. Patient states she does have a walker, raised toilet seat and a shower bench from her previous hip replacement surgery. We discussed discharge planning from the hospital. Patient states she will most likely do in-home physical therapy for the first 2weeks before transitioning to outpatient physical therapy. I advised the patient that she will be provided with a prescription for narcotic pain medication for postoperative pain control. We will have her on aspirin twice daily for the first 30 days postoperatively for blood clot prevention. Patient verbalized understanding of all information provided during today's visit. Patient be scheduled for 2-week postoperative follow-up visit with myself on May 23, 2024. This chart was completed utilizing [employer] voice recognition software. Grammatical errors,random word insertions, pronoun errors, and in complete sentences are an occasional consequence of the system. Any questions or concerns about the content, text, or information contained within the body of this dictation should be addressed directly to the physician for clarification. Electronic Signature on File CC: SUKHI Philip [address] [address] Electronically Reviewed/Signed by: Neville Aden PA-C Author Signature Dt/Tm:04/10/2024 04:26 PM Division of Sports Medicine Electronically Reviewed/Signed by: Jamie Wren MD Cosigner Signature Dt/Tm: 04/10/2024 05:20PM Division of Sports Medicine DC Patient Care team information Care Team Personnel Name: SUKHI Coulter Shari A Position: Nurse Pract - Family Med Member Role: Primary Care Provider Address: [address] [place] [address], [place] [address] [place] Care Team Related Persons Name: LIA JONES Name: LIA JONES
[2024-04-30] MEDS: LR 500ML BOLUS, THEN 15ML/HR IV SCH (05:55)
[2024-04-30] MEDS: LR 60ML/HR IV SCH (06:04)
[2024-04-30] MEDS: FAMOTIDINE 20 MG TAB PO SCH (06:05)
[2024-04-30] MEDS: CeleBREX 200 MG CAP PO SCH (06:05)
[2024-04-30] MEDS: traMADol HCL 50 MG TABLET PO SCH (06:05)
[2024-04-30] MEDS: ACETAMINOPHEN 500 MG TAB PO SCH ×2 (06:05→14:23)
[2024-04-30] MEDS: Scopolamine 1 MG TDSY TD SCH (06:06)
[2024-04-30] MEDS ORDERED: MEPIVACAINE HCL 1.5% 30 ML VIAL ONE (06:23)
[2024-04-30] MEDS ORDERED: ROPIVACAINE 0.5% 5 MG/ML 30 ML VIAL ONE (06:23)
--- NOTE | 2024-04-30 06:37 | History & Physical Bridge Note ---
Date of Service April 30, 2024 History & Physical Bridge Note I have examined the patient, reviewed the History & Physical and in the interval since the performance of the History & Physical I have noted the following changes of clinical significance: no changes noted
[2024-04-30] MEDS ORDERED: fentaNYL citrate PF 100 MCG/2 ML VIAL ONE (06:48)
[2024-04-30] MEDS ORDERED: MIDAZOLAM HCL 1 MG/ML 2ML VIAL ONE (06:48)
[2024-04-30] MEDS: TRANEXAMIC ACID 1,000 MG **IV Pre-op IV SCH (06:48)
--- NOTE | 2024-04-30 06:49 | Anesthesiology Consultation ---
Date of Service April 30, 2024 Assessment & Plan Chart Review Chart Review: Acceptable Risk for Surgery Consults Requested none History Surgery Operation Date: 04/30/24 07:00 Proposed Procedures p Left Total Knee Arthroplasty - Jamie Wren MD Height/Weight Height: 5 ft 7 in Weight: 77.3 kg Allergies Allergy/AdvReac Type Severity Reaction Status Date / Time cortisone AdvReac Severe Had Verified 04/30/24 06:30 episode ITP after injection morphine AdvReac Mild Nausea Verified 04/30/24 05:43 Medications Home Medications Medication Instructions Recorded Confirmed Last Taken cyclobenzaprine 10 mg tablet 10 mg PO TID PRN muscle spasm #15 11/18/18 04/30/24 04/29/22 tabs semaglutide (weight loss) 1 mg/0.5 1 mg subcut Q7D 03/25/24 04/30/24 04/09/24 08:00 mL subcutaneous pen injector ([employer]) Active Medications Generic Name Dose Route Start Last Admin Trade Name Freq PRN Reason Stop Dose Admin Acetaminophen 1,000 mg 04/30/24 06:00 04/30/24 06:05 Acetaminophen 500 Mg Tab PO 04/30/24 18:00 1,000 mg PREOP ELLIOTT Administration Celecoxib 200 mg 04/30/24 06:00 04/30/24 06:05 Celebrex 200 Mg Cap PO 04/30/24 18:00 200 mg PREOP ELLIOTT Administration Famotidine 20 mg 04/30/24 06:00 04/30/24 06:05 Famotidine 20 Mg Tab PO 04/30/24 18:00 20 mg PREOP ELLIOTT Administration Lactated Ringer's 1,000 mls @ 15 mls/hr 04/30/24 06:00 04/30/24 05:55 Lr IV 04/30/24 18:00 15 mls/hr .Q24H ELLIOTT Administration Lactated Ringer's 1,000 mls @ 60 mls/hr 04/30/24 06:00 04/30/24 06:04 Lr IV 04/30/24 22:39 Not Given .[id number] ELLIOTT Tranexamic Acid 1,000 mg in 100 mls @ 600 mls/hr 04/30/24 06:00 04/30/24 06:48 Tranexamic Acid / 0.7% Nacl IV 04/30/24 18:00 600 mls/hr TODAY@0600 ELLIOTT Administration Scopolamine 1 patch 04/30/24 06:00 04/30/24 06:06 Scopolamine 1 Mg Tdsy TD 04/30/24 18:00 1 patch PREOP ELLIOTT Administration Tramadol HCl 50 mg 04/30/24 06:00 04/30/24 06:05 Tramadol Hcl 50 Mg Tablet PO 04/30/24 18:00 50 mg PREOP ELLIOTT Administration NPO Date Last Intake of Fluids: 04/29/24 Time Last Intake of Fluids: 17:00 Date Last Intake of Solids: 04/29/24 Time Last Intake of Solids: 17:00 Past Medical History Medical History Lumbar spondylosis DDD (degenerative disc disease), cervical C5-C6- has herniated disc, needs surgery, slightly limited rom- seeing Dr. Gruber Asthma Per PCP records - no isses, per pt. Hyperlipidemia Per PCP records Hypertension Per PCP records History of ITP Happened after cortisone injection > had 5 units of platelets transfused (2011) No issues since History of COVID-19 (03/2023) Mild, no issues since Past Surgical History Surgical History Nausea and vomiting after administration of anesthetic agent Status post total hip replacement, right (2021) History of nasal surgery x2 Hx of colonoscopy Hx of eye surgery left eye, cornea erosion History of partial hysterectomy Hx of hysterectomy Hx of hand surgery left ring finger partial amputation Hx of cholecystectomy Social History Smoking Status: Never smoker Do You Dip or Chew Tobacco: No Hx Alcohol Use: Yes alcohol intake frequency: a few times a week Hx Substance Use: No substance use type: does not use Physical Exam Vital Signs Last Vital Signs Temp 36.5 C 04/30/24 05:48 Pulse 69 04/30/24 05:48 Resp 18 04/30/24 05:48 BP 111/73 04/30/24 05:48 Pulse Ox 99 04/30/24 05:48 O2 Del Method Room Air 04/30/24 05:48
[2024-04-30] MEDS: ceFAZolin 2000MG 2,000 MG/15 ML SYR IV SCH ×2 (07:02→14:24)
[2024-04-30] MEDS ORDERED: PROPOFOL IV EMULSION 10 MG/ML 20 ML VIAL IV ONE (07:06)
[2024-04-30] MEDS ORDERED: fentaNYL citrate PF 100 MCG/2 ML VIAL IV PRN (07:07)
[2024-04-30] MEDS ORDERED: ePHEDrine sulfate 50 MG/ML AMP IV PRN (07:07)
[2024-04-30] MEDS ORDERED: HYDROmorphone INJ 2 MG/ML SYR/VIAL IV PRN (07:07)
[2024-04-30] MEDS ORDERED: ATROPINE SULFATE 0.1 MG/ML 10ML SYR IV PRN (07:07)
[2024-04-30] MEDS ORDERED: BUPIVACAINE 0.5 % 5 MG/1 ML PF 10ML VIAL ONE (07:10)
[2024-04-30] MEDS ORDERED: ONDANSETRON INJ 2 MG/ML 2 ML VIAL ONE (07:34)
[2024-04-30] MEDS ORDERED: LIDOCAINE 2% 2 ML VIAL/AMP(20MG/ML) INFIL ONE (07:34)
[2024-04-30] MEDS ORDERED: PROPOFOL IV EMULSION 10 MG/ML 100 ML VIAL IV ONE (07:34)
[2024-04-30] MEDS: ORTHO JOINT ANESTHETIC ONE (07:36)
[2024-04-30] MEDS: TRANEXAMIC ACID 1,000 MG **IV Intra-op IV SCH (08:00)
[2024-04-30] MEDS: ROPIVACAINE 0.5% HCL/PF 246 MG, Ketorolac (*for OR use only*) 30 MG, EPINEPHrine 30MG/3... INFIL SCH (08:03)
--- NOTE | 2024-04-30 08:33 | Operative Report ---
Post Operative Report Pre & Post Diagnosis Operation Date: 04/30/24 07:00 Pre-Op Diagnosis: Left Knee Osteoarthritis Post-Op Diagnosis: Left Knee Osteoarthritis I identified the patient and participated in the time-out.: Yes Procedure Operation Date: 04/30/24 07:00 Actual Procedures p Left Total Knee Arthroplasty, Cemented(Left) - Jamie Wren MD Surgeon Jamie Wren MD Building Consultant RONDA Aden PA-C. No resident or fellow was available to assist. Estimated Blood Loss 100 Findings Consistent with Post-Op Diagnosis Specimens Left knee bone and soft tissue contents Drains None Anesthesia Type Spinal MAC Complications none Disposition Disposition: Recovery Room Indications 58-year-old female with left knee osteoarthritis refractory to conservative management. X-rays demonstrate medial joint space narrowing, tricompartmental osteophyte formation and subchondral sclerosis. I had a long discussion with her about the risks and benefits of surgery, alternatives to surgery, and expected outcomes. After reviewing all these she elected proceed with surgery. All questions were answered. Informed consent was signed. Description of Procedure Patient was identified in the preoperative holding area where the surgical site, left knee, was marked. Spinal anesthetic was placed by anesthesia. Patient was brought back to the operating room, placed on the operating room table, and IV sedation was administered. A bump was placed underneath the ipsilateral hip. All bony prominences were padded. Perioperative antibiotics and tranexamic acid were administered. Exam under anesthesia was performed. This demonstrated range of motion arc from 5 to 100 degrees. Stable to varus and valgus stress test at 30 degrees. The surgical site was prepped and draped in the normal sterile fashion. Prior to incision a multidisciplinary timeout was called. All in the room were in agreement. We began by exsanguinating the limb with an Esmarch bandage. Tourniquet was inflated to 250 mmHg. A 14 cm long incision was made over the anterior aspect of the knee. I dissected through the subcutaneous tissues to the level of the f ascia. Full-thickness flaps were raised above the fascia. A median parapatellar arthrotomy was made. Half the fat pad was excised. A medial release was performed with Bovie electrocautery on the proximal tibia. Synovitis in the knee and suprapatellar pouch was removed. The patella was then everted and held with 2 towel clips. The thickness of the patella was measured at 24 mm. Patellar resection was performed. Caliper showed the patella thickness now to be 14 mm. A size 38 trial was placed and had a great fit. The 3 drill holes were placed then the trial button was placed. The patellar thickness was now 24 mm which I was very happy with. The patellar trial was then removed, and the knee was flexed up. Retractors were placed to protect the MCL and LCL. Osteophytes were removed from the femoral condyles and intercondylar notch. The ACL and PCL were excised. Intramedullary drill guide was drilled into the femur. Distal femoral cutting guide was placed set at 5 degrees of valgus to resect 10 mm off the distal femur. Distal femoral resection was made without difficulty. The tibia was then exposed. The lateral meniscus was sharply excised. The tibial cutting jig was positioned in line with the tibial shaft in the coronal plane and with 3 degrees of posterior slope in the sagittal plane to resect 9 mm off the less involved compartment. The jig was then pinned in position and the tibial cut was made. We then brought the knee into full extension. Lamina spreaders were placed. The medial meniscus was excised. The extension block was then placed for 5 mm thickness poly. This gave us full extension and excellent stability to varus and valgus stress. Next the extension block was removed, the knee was flexed up, collateral ligaments were protected, and the epicondylar axis and Whitesides line were marked out on the distal femoral cut. Femoral sizing guide was placed. External rotation was set at 3 degrees so that the posterior cut would be parallel with the epicondylar axis and perpendicular with Whitesides line. The patient sized to a size 7 femur. 2 pins were then placed through the jig into the distal femur. The jig was removed and the appropriately sized 4-in-1 cutting jig was placed over the pins, then fixated to the bone using threaded, headed pins. We confirmed that we would not notch the femur with our anterior cut. Our 4 cuts were then made. The cutting jig was removed. The flexion block was then placed with the knee held at 90 degrees. There was excellent stability to varus and valgus at 90 degrees with no gapping medially or laterally. Next the box cutting jig was placed on the distal femur. The box cut was made and the femoral trial was impacted into position. Lug holes were drilled in the distal femur. We then reexposed the tibia. The tibia was sized to a 6 for a fixed-bearing component. The tibial tray with a 5 mm thickness polyethylene liner was placed on the cut tibial surface and the knee was brought through a full range of motion. There was excellent stability to varus valgus stress throughout a full range of motion, which was approximately 0-125 degrees. Bovie electrocautery was used to paige the tibia at the site where the tibial tray rested in full extension. We then flexed up the knee, removed the polyethylene liner, and pinned the tibial tray into position to match the cautery paige. The intramedullary drill followed by the keel punch were used to prepare the tibia. Next the trial components were removed. I then injected the posterior capsule and periosteum with the periarticular injection cocktail. The bone cuts were then irrigated and dried while the cement was mixed on the back table. The femoral component was cemented on first. Excess cement was removed. A lap spon ge was placed over the femoral component for protection, then the tibia was subluxated anteriorly. The all polyethylene tibial component was then cemented in place. Again excess cement was removed. The knee was brought into full extension and held there until the cement cured. The patella was cemented and clamped. Dilute Betadine solution was then allowed to soak in the knee while the cement cured. Once the cement was fully cured, the knee was irrigated out, the tourniquet was let down and meticulous hemostasis was ensured. The knee was brought through a full range of motion. I was were very happy with the patella tracking and the stability. We then began to close. Interrupted 0 Vicryl suture was used to repair the patellar retinaculum in [id number] fashion. The quadriceps and patellar tendons were run with #1 Vicryl. The deep dermal layer was closed with interrupted 2-0 Vicryl. Dermabond and Zipline was used for the skin, followed by a Silverlon dressing. A compressive Brenden wrap was placed and the knee was placed into a knee immobilizer. Patient's sedation was lifted and was transferred to recovery room in stable condition. Summary of implants: Depuy Attune Posterior Stabilized Cemented Femur, size 7 left Attune All-polyethylene tibial component, posterior stabilized 5 mm thickness, size 6 Attune patella medialized dome, size 38 2 batches of Palacos high viscosity bone cement Postoperative course: Patient will be admitted to the floor for pain control and monitoring. Weightbearing as tolerated with a walker with no knee range of motion for 48 hours. Aspirin for DVT prophylaxis. I attest to the content of the Intraoperative Record and any orders documented therein. Any exceptions are noted below.
[2024-04-30] MEDS ORDERED: ALUMINUM/MAGNESIUM SUSP 30 ML UDC PO PRN (08:36)
[2024-04-30] MEDS ORDERED: METOCLOPRAMIDE HCL INJ 5 MG/ML 2 ML VIAL IV PRN (08:36)
[2024-04-30] MEDS ORDERED: NALOXONE HCL 0.4 MG/1 ML VIAL/CARP IV PRN (08:36)
[2024-04-30] MEDS ORDERED: bisacodyL 10 MG SUPP PR PRN (08:36)
[2024-04-30] MEDS ORDERED: diphenhydrAMINE 50 MG/ML VIAL IV PRN (08:36)
[2024-04-30] MEDS ORDERED: MAGNESIUM HYDROXIDE SUSP 30 ML UDC PO PRN (08:36)
--- NOTE | 2024-04-30 08:36 | Operative Report ---
Post Operative Report Pre & Post Diagnosis Operation Date: 04/30/24 07:00 Pre-Op Diagnosis: Left Knee Osteoarthritis Post-Op Diagnosis: Left Knee Osteoarthritis I identified the patient and participated in the time-out.: Yes Procedure Operation Date: 04/30/24 07:00 Actual Procedures p Left Total Knee Arthroplasty, Cemented(Left) - Jamie Wren MD Surgeon Jamie Wren MD Psych Sales Specialist RONDA Aden PA-C. No resident or fellow was available to assist. Estimated Blood Loss 100 Findings Consistent with Post-Op Diagnosis Specimens Left knee bone and soft tissue Description of Procedure I was present during the entire case assisting with positioning, prepping, draping, wound retraction, wound closure and dressing application. No fellow present. Please see Dr. Wren procedure note for specific of the case. I attest to the content of the Intraoperative Record and any orders documented therein. Any exceptions are noted below.
[2024-04-30] MEDS: ONDANSETRON INJ 2 MG/ML 2 ML VIAL IV PRN ×2 (08:39→14:42)
[2024-04-30] MEDS ORDERED: CYCLOBENZAPRINE HCL 10 MG TAB PO PRN (08:39)
--- NOTE | 2024-04-30 09:01 | XRay Report ---
XR knee LT 1 or 2V routine HISTORY: 58 years-old Female Surgical Post Op COMPARISON: 04/10/2024 TECHNIQUE: 2 views of the left knee FINDINGS: Total joint arthroplasty with patellar resurfacing. Expected postoperative soft tissue swelling with deep tissue air. No acute fracture, dislocation or unexpected opaque foreign body. IMPRESSION: Satisfactory alignment of the total joint arthroplasty. ACT 112: Negative or not required by law. The above report was generated using voice recognition software. It may contain grammatical, syntax o r spelling errors. Electronically signed by: Dameon Ames M.D. 04/30/2024 9:00 AM
[2024-04-30] MEDS: PROMETHAZINE HCL 6.25 MG in SODIUM CHLORIDE 0.9% 50 ML IV PRN (09:10)
--- NOTE | 2024-04-30 11:10 | Anesthesiology Progress Note ---
Date of Service April 30, 2024 Anesthesia Post Procedure Vital Signs Vital Signs: Temp Pulse Pulse Resp BP Pulse Ox O2 Del Method 04/30/24 11:00 57 L 16 99/65 L 100 Nasal Cannula 04/30/24 10:45 53 L 19 105/66 100 Nasal Cannula 04/30/24 10:35 56 L 12 104/66 100 Nasal Cannula 04/30/24 10:25 48 L 12 100/61 100 Nasal Cannula 04/30/24 10:15 49 L 18 98/65 L 100 Nasal Cannula 04/30/24 10:05 49 L 15 92/64 L 95 Nasal Cannula 04/30/24 09:55 48 L 14 97/65 L 95 Nasal Cannula 04/30/24 09:45 49 L 14 96/60 L 96 Nasal Cannula 04/30/24 09:35 48 L 19 93/61 L 95 Nasal Cannula 04/30/24 09:25 50 L 14 98/60 L 96 Nasal Cannula 04/30/24 09:15 19 L 17 97/60 L 93 Nasal Cannula 04/30/24 09:05 56 L 17 99/61 L 96 Nasal Cannula 04/30/24 08:55 56 L 13 103/63 97 Oxymask 04/30/24 08:45 57 L 22 105/60 96 Oxymask 04/30/24 08:36 36.4 C L 69 12 111/73 96 Oxymask 04/30/24 05:48 36.5 C 69 18 111/73 99 Room Air O2 Flow Rate 04/30/24 11:00 2 04/30/24 10:45 2 04/30/24 10:35 2 04/30/24 10:25 2 04/30/24 10:15 2 04/30/24 10:05 3 04/30/24 09:55 3 04/30/24 09:45 3 04/30/24 09:35 3 04/30/24 09:25 3 04/30/24 09:15 2 04/30/24 09:05 2 04/30/24 08:55 4 04/30/24 08:45 8 04/30/24 08:36 8 04/30/24 05:48 Transfer of Care Handoff Completed per policy Notes Mental Status: alert / awake / arousable and participated in evaluation Patient Amnestic to Procedure: Yes Nausea / Vomiting: adequately controlled Pain: adequately controlled Airway Patency, RR, SpO2: stable & adequate BP & HR: stable & adequate Hydration State: stable & adequate Anesthetic Complications: no major complications apparent
[2024-04-30] MEDS: dexAMETHasone**PF** 10 MG/ML VIAL IV SCH (11:40)
[2024-04-30] MEDS: SODIUM CHLORIDE 0.9% 50 ML BAG ONE (11:45)
[2024-04-30] MEDS: PROMETHAZINE HCL INJ 25 MG/ML 1 ML VIAL ONE (11:54)
[2024-04-30] MEDS: DOCUSATE SODIUM 100 MG CAP PO SCH (12:12)
[2024-04-30] MEDS: KETOROLAC TROMETHAMINE 15 MG/ML VIAL IV SCH (12:12)
[2024-04-30] MEDS: ASPIRIN 81 MG ECTAB PO SCH (12:41)
[2024-04-30] MEDS: Scopolamine CHECK PATCH PLACEMENT SCH (15:53)
[2024-04-30] MEDS: oxyCODONE HCL IR 5 MG TAB (IMMEDIATE RELEASE) PO PRN (17:22)
[2024-04-30] MEDS: SENNA 8.6 MG TAB PO SCH (21:06)
[2024-05-01 07:20] LABS: Hematocrit (blood only) 33.8 % (37.0-47.0); Hemoglobin 10.5 g/dl (12.0-16.0); Mean Corpuscular Hemoglobin 29.1 pg (25.0-34.0); Mean Corpuscular Hgb Conc 31.1 g/dL (32.0-36.0); Mean Corpuscular Volume 93.6 fL (80.0-100.0); Mean Platelet Volume 9.3 fL (9.4-12.4); Platelet Count 191 K/uL (130-400); RDW Coefficient of Variation 12.5 % (11.5-14.5); RDW Standard Deviation 42.9 fL (36.4-46.3); Red Blood Count 3.61 M/uL (4.20-5.40); White Blood Count 6.69 K/ul (4.8-10.8)
[2024-05-01 07:44] LABS: BUN Creatinine Ratio 20.7 (10-20); Calcium 8.4 mg/dl (8.6-10.3); Creatinine Clr Calc Pharmacy 76.5 ml/min; Potassium 4.2 mmol/L (3.5-5.1)
[2024-05-01 08:17] VITALS: RESP 16; O2SAT 95
[2024-05-01] MEDS: MULTIVITAMIN TAB PO SCH (08:34)
[2024-05-01] MEDS: dexAMETHasone 4 MG TAB PO SCH (08:34)
[2024-05-01] MEDS ORDERED: INFLUENZA VACC TS2024-25(6m+)/PF (IIV3) 0.5mL Syr IM ONE (09:00)
[2024-05-01] MEDS: HYDROmorphone INJ 0.5 MG/0.5 ML SYR IV PRN (09:26)
--- NOTE | 2024-05-01 09:56 | Orthopedic Progress Note ---
Date of Service May 01, 2024 Assessment & Plan (1) S/P total knee arthroplasty: Plan: Weightbearing as tolerated with walker assistance and immobilizer for first 48 hours postop Ice with easy wrap Pain control with p.o. medication Keep Silverlon dressing in place DVT prophylaxis with aspirin and ALBERTINA stockings Plan is to discharge home today with in-home physical therapy for the first 2 weeks Follow-up at [facility] orthopedics as previously scheduled With questions contact our clinic at [phone] Admission and Anticipated Discharge Date Admission Date: April 30, 2024 Subjective This 58-year-old female is day 1 status post left total knee arthroplasty. Patient states that she has a considerable amount of pain but the oxycodone does seem to take the edge off. She states that the left leg does feel little bit weak. Patient states she has been able to get up and use the bathroom a few times. Currently she denies chest pain, shortness of breath, fever, chills, sweats, nausea, vomiting, diarrhea or difficulty voiding. She states that earlier this morning she did have some slight nausea and wonders if I could prescribe her some medication to be discharged with. Review of Systems Review of Systems: All systems reviewed & are unremarkable except as noted in Subjective Physical Exam Physical Exam: Left knee: Outer dressing was removed. Silverlon is clean dry and intact and left in place. Patient is able to perform active straight leg raise test. Her quad strength is 3+ out of 5. She is able to actively dorsi and plantarflex her foot without issue. Her peripheral pulses are 2+. Her calf is soft and supple nontender to palpation. She is neurovascularly intact in the left lower extremity. Results & Data Vital Signs (Past 12 Hours) Vital Signs Temp Pulse Resp BP Pulse Ox O2 Del Method 05/01/24 08:15 37.0 C 83 16 105/64 95 Room Air 05/01/24 03:34 36.7 C 72 18 103/67 93 Room Air 04/30/24 23:51 36.9 C 67 16 105/67 96 Room Air Diagnostic Findings Laboratory Results WBC 6.69 K/ul (4.8-10.8) 05/01/24 06:49 RBC 3.61 M/uL (4.20-5.40) L 05/01/24 06:49 Hgb 10.5 g/dl (12.0-16.0) L 05/01/24 06:49 Hct 33.8 % (37.0-47.0) L 05/01/24 06:49 MCV 93.6 fL (80.0-100.0) 05/01/24 06:49 MCH 29.1 pg (25.0-34.0) 05/01/24 06:49 MCHC 31.1 g/dL (32.0-36.0) L 05/01/24 06:49 RDW Std Deviation 42.9 fL (36.4-46.3) 05/01/24 06:49 RDW Coeff of Roma 12.5 % (11.5-14.5) 05/01/24 06:49 Plt Count 191 K/uL (130-400) 05/01/24 06:49 MPV 9.3 fL (9.4-12.4) L 05/01/24 06:49 Sodium 140 mmol/L (136-145) 05/01/24 06:49 Potassium 4.2 mmol/L (3.5-5.1) 05/01/24 06:49 Chloride 108 mmol/L (98-107) H 05/01/24 06:49 Carbon Dioxide 30 mmol/L (21-32) 05/01/24 06:49 Anion Gap 2 (3-11) L 05/01/24 06:49 BUN 18 mg/dl (6-23) 05/01/24 06:49 Creatinine 0.87 mg/dl (0.6-1.2) 05/01/24 06:49 Est Cr Clr Drug Dosing 76.5 ml/min 05/01/24 06:49 eGFR 77.66 05/01/24 06:49 BUN/Creatinine Ratio 20.7 (10-20) H 05/01/24 06:49 Glucose 97 mg/dl (70-99(Fasting)) 05/01/24 06:49 Calcium 8.4 mg/dl (8.6-10.3) L 05/01/24 06:49 Impressions Knee X-Ray 04/30/24 08:36 XR knee LT 1 or 2V routine HISTORY: 58 years-old Female Surgical Post Op COMPARISON: 04/10/2024 TECHNIQUE: 2 views of the left knee FINDINGS: Total joint arthroplasty with patellar resurfacing. Expected postoperative soft tissue swelling with deep tissue air. No acute fracture, dislocation or unexpected opaque foreign body. IMPRESSION: Satisfactory alignment of the total joint arthroplasty. ACT 112: Negative or not required by law. The above report was generated using voice recognition software. It may contain grammatical, syntax or spelling errors. Electronically signed by: Dameon Ames M.D. 04/30/2024 9:00 AM
[2024-05-01 11:10] VITALS: BP 107/66; PULSE 74; TEMP 98.4
--- NOTE | 2024-05-01 16:55 | Discharge Summary ---
Date of Service May 01, 2024 Admission HPI Per Admitting Provider History of Present Illness (including history relevant to procedure): This 58-year-old female presents to the clinic today for preoperative history and physical. Patient complains of a 2-year history of left knee pain that is primarily medial sided. She does experience intermittent episodes of swelling. She states she was not able to receive steroid injections because of her platelet count. She also was not able to afford hyaluronic acid injections. She has done some physical therapy and used oral nonsteroidal agents without relief her symptoms. Patient is electing proceed with surgical intervention. Review Of Systems: A 12 point review of systems performed is unremarkable except for those things stated in the HPI and past medical history. Past Medical History: Problems: Arthritis of right hip Right hip pain Saddle anesthesia Sinusitis Vazquez's neuroma of right foot Right carpal tunnel syndrome Tarsal tunnel syndrome of right side Right lumbar radiculopathy Right lateral epicondylitis Right cervical radiculopathy Cervical disc disease Radicular syndrome of left leg Lumbar disc disease Lumbar spondylolysis Hyperlipidemia Weight disorder Lichen simplex chronicus Endometriosis Asthma Chronic low back pain Hyperlipidemia Dry eyes Environmental allergies Procedure History Procedure Procedure Date Comments Amputated ring finger Cholecystectomy BRUNA - Total abdominal hysterectomy and bilateral salpingo-oophorectomy sinus surgery tubal ligation Hip arthroplasty 05/03/2022 - Right total hip arthroplasty. THR - Total hip replacement 05/03/2022 - right CT of paranasal sinuses 08/31/2021 - Postoperative change and mild paranasal sinus disease as above. CT of abdomen and pelvis 05/24/2021 - 1) Interval resolution of the mesenteric infiltration/panniculitis. 2) Stable subcentimeter mesenteric lymph nodes. These do not meet CT creiteria for pathologic involvement. 3) Additional findings as described above. CT of abdomen and pelvis 02/22/2021 - Interval improvement in mesenteric fat stranding and mesenteric lymphadenopathy compatible with improving mesenteric panniculitis. Mammogram 02/27/2020 - No mammographic evidence of malignancy Colonoscopy 01/01/2020 - Repeat in 10 years. - impression:-the ecamined portion of the ileum was [id number] internal hemorrhoids-no specimens collected Mammogram 02/06/2019 - IMPRESSION: ACR BI-RADS CATEGORY 1: NEGATIVE There is no mammographic evidence of malignancy. A one year screening is recommended. Mammogram 02/05/2018 - wnl Mammogram 12/26/2016 - no mammographic evidence of malignancy. REPAIR OF NASAL SEPTUM 11/02/2016 - EEndoscopic sinus surgery, B Mammogram 11/16/2015 - There is no mammographic evidence of malignancy. A 1 year screening mammogram is recommended. CT - Computerized tomography 07/07/2015 - abdomen and pelvis CT with and without iv contrast,urogram protocol Allergies and Sensitivities: NKA Current Home Meds: (Last Updated 04/10 12:58) ciclopirox topical (Penlac Nail Lacquer 8% topical solution) 1 appl topical Daily cyclobenzaprine (cyclobenzaprine 10 mg oral tablet) 1 tab PO qhs PRN: NEEDED FOR PAIN meclizine (meclizine 25 mg oral tablet) 25 mg PO tid PRN: as needed for dizziness omeprazole (omeprazole 20 mg oral delayed release capsule) 1 cap PO Daily ondansetron (Zofran ODT 4 mg oral tablet, disintegrating) 4 mg PO tid PRN: as needed for nausea/vomiting semaglutide (Wegovy (1 mg dose) subcutaneous solution) 1 mg subQ q7days semaglutide (Wegovy (0.5 mg dose) subcutaneous solution) 0.5 mg subQ q7days Initial Wt: 04/10 75.9 kg 167 lb Admission Exam Per Admitting Provider Physical Exam: (relevant to the procedure, including heart and lung evaluation) General: Alert and oriented x 3 with proper grooming and hygiene Eyes: Pupils are equal reactive to light with accommodation. Extraocular movements are intact. Dentition is appropriate. Patient has braces Throat: Posterior oropharynx clear with absence of edema, erythema or exudate Cardiac: Regular rate and rhythm with no murmurs or gallops appreciated Lungs: Clear to auscultation throughout with no wheezing, rales or rhonchi Abdomen: Mildly obese, nondistended, nontender with NABS Extremities: Left knee: Range of motion is from 6 degrees of extension to approximately 100 degrees of flexion. She experiences medial and lateral joint tenderness when the knee is palpated in flexed position. There is audible crepitation with passive range of motion. I was able to slightly manipulate her patella with palpable crepitation. She had no laxity with varus or valgus stressing. AP drawer sign and Kev test were negative. However patient does have an antalgic gait. She is neurovascularly intact in the left lower extremity. Neuro: Cranial nerves II through XII are intact no motor or sensory deficit Skin: Normal in appearance with no open skin areas or discharge Principal Diagnosis Left knee osteoarthritis Discharge Exam Left knee: Outer dressing was removed. Silverlon is clean dry and intact and left in place. Patient is able to perform active straight leg raise test. Her quad strength is 3+ out of 5. She is able to actively dorsi and plantarflex her foot without issue. Her peripheral pulses are 2+. Her calf is soft and supple nontender to palpation. She is neurovascularly intact in the left lower extremity. Discharge Data Allergies Allergy/AdvReac Type Severity Reaction Status Date / Time cortisone AdvReac Severe Had Verified 04/30/24 06:30 episode ITP after injection morphine AdvReac Mild Nausea Verified 04/30/24 05:43 Procedures Performed Operation Date: 04/30/24 07:00 Actual Procedures p Left Total Knee Arthroplasty, Cemented(Left) - Jamie Wren MD Ordered Studies 04/30/24 05:00 US - OR guided needle placemen Routine Hospital Course (1) S/P total knee arthroplasty: Patient had an eventful overnight stay following a left total knee arthroplasty. She is very pleased with the results of surgery. She states that she does have significant pain and had some nausea this morning and wonders if we could prescribe some Zofran. I did include this in her discharge medications. Patient states she is scheduled to begin in home physical therapy later this weekend. Weightbearing as tolerated with walker assistance and immobilizer for first 48 hours postop Ice with easy wrap Pain control with p.o. medication Keep Silverlon dressing in place DVT prophylaxis with aspirin and ALBERTINA stockings Plan is to discharge home today with in-home physical therapy for the first 2 weeks Follow-up at [facility] orthopedics as previously scheduled With questions contact our clinic at [phone] Total Time Total Time Spent Total Time Spent (In Minutes): 25 mins Discharge Plan Discharge Items Patient Disposition: Home - Home Health Services Reason For Visit: Left Knee Osteoarthritis Discharge Diagnosis: s/p Left total knee arthroplasty Activity: As commented below Lifting: None Bathing: Keep incision dry Bathing Comment: May shower later today Sexual Activity: Wait until after follow-up appointment Exercise/Sports: Wait until after follow-up appointment Driving/Machine Use: No driving until cleared by ophthalmologist retina specialist Weightbearing: Left weightbearing Weightbearing Comment: As tolerated with walker assistance and immobilizer for 48 hours Non-emergency contact: Surgeon Call non-emergency contact if: you have any medication questions, your pain is not controlled, your temperature is above 101.5, your wound has increased drainage and your wound pain has increased Follow-up/Referrals: [facility] Home Health: Neil PA [Outside] (as per surgeon's office) Rosie Coulter CRNP [Primary Care Provider] - Diet: Regular Addtl Attending Provider Instructions: Post-operative Instructions Dear Patient and Family/Friends, Before you are discharged from the hospital, it is important to know what to expect when you get home after surgery. To that end, we have created this sheet of discharge instructions which covers many commonly asked questions. Make sure you go through this sheet in its entirety with your nurse before you are discharged. Please note that we will go over the specifics of your surgery and recovery when you return for your first post-operative visit. Sincerely, Dr. Wren Medications 1. Oxycodone 5 mg: Take 1-2 tabs every 4-6 hours as needed for postoperative pain control. A prescription for this medication will be sent to your pharmacy. 2. Diclofenac sodium 75 mg: A prescription for this medication will be sent to your pharmacy with 1 refill. Please use this medication twice daily for postoperative pain and inflammation relief 3. Zofran 4 mg: Take 1 tablet every 6-8 hours as needed for postoperative nausea and vomiting. This will be sent to your pharmacy 4. Aspirin 81 mg: Take 1 tab twice daily for the first 30 days postoperatively for blood clot prevention. Please purchase the medication. 5. Extra strength Tylenol 500 mg: Take 2 tabs every 6-8 hours as needed for additional pain relief. Please purchase this medication. Pain Expect to be in a fair amount of pain after surgery. Remember, our goal is not to eliminate your pain, but to make it tolerable. It is a good idea to stay ahead of your pain by taking the medications you were prescribed once you get home. Typically, the pain starts improving 3-7 days after surgery. You should start weaning off the narcotic pain medication (oxycodone, hydrocodone, hydromorphone, morphine) as soon as your pain improves. Please call our office if your pain is not adequately controlled. Ice Ice your operative site at least 5 times a day for 15-30 minutes at a time. Make sure you have a thin cloth between the ice or cooling unit and your skin to prevent saul bite. This is especially important if you received a nerve block. Continue icing your operative site for the first 5-7 days after surgery, then as needed. Diet/Nausea/Vomiting Start by drinking clear liquids and eating crackers. If you can tolerate this, then you may resume your normal diet. If you feel nauseated or vomit, take Zo ana/ondansetron (if prescribed). Please call our office if you have intractable nausea or vomiting, or, if after hours, you may go to the Emergency Room for help. Constipation Constipation is a common side effect of narcotic pain medication. If you have not had a bowel movement within 2 days after surgery, we recommend purchasing an over the counter laxative such as Milk of Magnesia, Dulcolax, or Miralax from a local pharmacy, and taking it as instructed. Call our clinic if any questions. Slings and Braces If you were placed in a sling or brace, it must be worn at all times, including sleep. You may remove your sling or brace for physical therapy, home exercises, and showering. The length of time you will be in your brace and range of motion restrictions depends on what surgery you had; these details will be reviewed at your first post-operative appointment. Nerve block The anesthesia team sometimes places a nerve block to help with post-operative pain control. This results in significant numbness and inability to move the extremity. The nerve block usually wears off in 8-12 hours, but sometimes can last up to 24 hours. Please call our office if you are still unable to move your extremity after 24 hours, unless you received a pain pump to take home. Nerve blocks typically wear off quickly, so start taking pain medication as soon as you start feeling soreness near your surgical site. Weight bearing and Range of Motion. Do not bear any weight through your operative extremity immediately after surgery. If you had upper extremity surgery, do not lift anything with that arm. If you are in a knee brace, keep it locked in place until your follow-up. We will discuss your weight bearing, range of motion, and lifting restrictions in detail at your first post-operative appointment. Continuous Passive Motion (CPM) Machine If you were prescribed a CPM machine, it will start after your first post- operative appointment, at which time we will give you instructions on the range of motion settings and duration of treatment Physical therapy You will be given a prescription for physical therapy or occupational therapy at your first post-operative appointment. Typically, patients start therapy within 1 week of surgery Wound care and showering We will inspect your wound at your first post-operative visit, and may do a dressing change at that time. Most patients will be in a water-proof dressing that is removed 14 days after surgery. It is normal to see some dried blood on the dressing. Do not remove your dressing, paper strips or sutures yourself unless you are given permission. Showering is allowed the day after surgery. Do not scrub or remove any dressings. The wound should not be submerged underwater (i.e. in a bathtub or pool) until 4 weeks after surgery ALBERTINA stockings If you were given white stockings, these are to be worn at all times except to shower (on both legs) for the first 2 weeks after surgery. Driving You may not drive while taking narcotic pain medication or while in a cast, splint, sling or brace. You, the patient, need to make the final determination about when you are safe to drive, however, the earliest you may consider driving after surgery is below: Hand/Wrist/Elbow Surgery: 3 days Shoulder Surgery: 2 weeks Hip,/Knee/Ankle Surgery: 4 weeks Fracture repair: 6 weeks Return to Work Your return to work depends on what surgery was done and what type of work you do. Please bring any paperwork your employer needs completed to your first post-operative visit. Also, bring a description of your job duties, as this helps us to understand what risks you may face at work. Travel Avoid long distance travel (greater than 1 hour) in airplanes and cars for the first 6 weeks after surgery. If you must travel, you need to have a Doppler ultrasound done before you travel to rule out a blood clot in your legs. Follow-up You should have a follow-up appointment already scheduled 1-2 days after surgery. If not, please contact our office to make this appointment before you leave the hospital. When to call the office It is normal to have swelling and bruising in the limb that was operated on. This will improve with time. It is also normal to have fevers for the first 2 days after surgery. Reasons you should call your doctor include: Uncontrolled pain; Nausea, vomiting, or constipation that does not improve with medication; Fevers over 101.5, chills, sweats; Drainage or bleeding from the wound; Foul odor; Spreading areas of redness; Any other concerns. Contact Information Please call Dr. Wren's office at [phone] with any concerns. Pending Studies at Discharge: No Stand-Alone Forms: [facility] Medications and DC Order Prescriptions: New aspirin 81 mg Tablet,Delayed Release (Dr/Ec) 81 mg PO BID 30 Days Qty: 60 0RF acetaminophen [Tylenol Extra Strength] 500 mg Tablet 1,000 mg PO Q8 30 Days Qty: 180 0RF oxycodone 5 mg Tablet 5 - 10 mg PO Q4H MDD Ongoing treatment PRN (Reason: Postoperative pain control) Qty: 28 0RF diclofenac sodium 75 mg tablet,delayed release (DR/EC) 75 mg PO BID 30 Days Qty: 60 1RF ondansetron 4 mg tablet,disintegrating 4 mg PO Q8H Qty: 14 0RF Continued cyclobenzaprine 10 mg tablet 10 mg PO TID PRN (Reason: muscle spasm) Qty: 15 0RF Wegovy 1 mg/0.5 mL Pen Injector 1 mg SUBCUT Q7D Rx Instructions: Patient is going to stop taking- has notified her doctor Admission Data Admit Date/Time: 04/30/24 08:36 Attending Provider: Jamie Wren Admit Provider: Jamie Wren Primary Care Provider: Rosie Coulter Other Providers: [facility],Home Healthcare; [facility],Referral Center Other Interventions: Discharge Summary Assessment (RN) Last Done: 05/01/24 10:11
[2024-05-01] MEDS ORDERED: CeleBREX 200 MG CAP PO SCH (21:00)
== END 2024-05-01 12:11 | disposition home health service (06) ==
LOC: 3E 05:06 → ASU 05:06

== ENCOUNTER 2024-06-18 09:38 | Observation (INO) ==
--- NOTE | 2024-06-12 13:25 | Anesthesiology Consultation ---
Date of Service June 12, 2024 Assessment & Plan (1) Encounter for pre-operative examination: - check CBC with diff STAT am DOS, anemia post-op right TKA 05/01/24 H&H: 10.. Surgeon's office made aware. - s/p left TKA 04/30/24 SAB L3-L4 1 attempt + PNB. - Per credit administration officer on 06/12/24: No known infectious disease contacts, current infectious disease symptoms in past 10 days or COVID positive test result in the past 30 days. Chart Review Chart Review: Acceptable Risk for Surgery and Patient NOT seen in Pre Admission Testing History Surgery Operation Date: 06/18/24 11:20 Proposed Procedures p Left Knee Manipulation Under Anesthesia - Jamie Wren MD Height/Weight Height: 5 ft 7 in Weight: 81.647 kg Allergies Allergy/AdvReac Type Severity Reaction Status Date / Time cortisone AdvReac Severe Had Verified 06/18/24 09:59 episode ITP after injection morphine AdvReac Mild Nausea Verified 06/18/24 09:59 Medications Home Medications Medication Instructions Recorded Confirmed Last Taken cyclobenzaprine 10 mg tablet 10 mg PO TID PRN muscle spasm #15 11/18/18 06/18/24 04/29/22 tabs diclofenac sodium 75 mg 75 mg PO BID Postoperative pain 05/01/24 06/18/24 06/17/24 16:00 tablet,delayed release and inflammation relief 30 days #60 tabs ondansetron 4 mg disintegrating 4 mg PO Q8H Postoperative nausea 05/01/24 06/12/24 Unknown tablet and vomiting #14 tabs oxycodone 5 mg tablet 5 - 10 mg (1 - 2 x 5 mg) PO Q4H 05/01/24 06/18/24 06/17/24 20:00 PRN Postoperative pain control #28 tabs Active Medications Generic Name Dose Route Start Last Admin Trade Name Freq PRN Reason Stop Dose Admin Lactated Ringer's 1,000 mls @ 15 mls/hr 06/18/24 06:00 06/18/24 10:22 Lr IV 06/19/24 05:59 15 mls/hr .Q24H ELLIOTT Administration Lactated Ringer's 1,000 mls @ 15 mls/hr 06/18/24 06:00 06/18/24 10:22 Lr IV 06/19/24 05:59 Not Given .Q24H ELLIOTT Past Medical History Medical History Adverse effect of anesthesia "When I had my hip replaced my blood pressure went low and I was in recovery for four hours" as per patient Asthma Per PCP records - no isses, per pt. DDD (degenerative disc disease), cervical C5-C6- has herniated disc, needs surgery, slightly limited rom- seeing Dr. Gruber History of COVID-19 (03/2023) Mild, no issues since History of ITP Happened after cortisone injection > had 5 units of platelets transfused (2011) No issues since Hyperlipidemia Per PCP records Hypertension Per PCP records Lumbar spondylosis Stiffness of left knee reason for procedure 06/18/24 Past Surgical History Surgical History History of arthroplasty of left knee (04/30/24) History of nasal surgery x2 History of partial hysterectomy Hx of cholecystectomy Hx of colonoscopy Hx of eye surgery left eye, cornea erosion Hx of hand surgery left ring finger partial amputation Hx of hysterectomy Nausea and vomiting after administration of anesthetic agent Status post total hip replacement, right (2021) Social History Smoking Status: Never smoker Do You Dip or Chew Tobacco: No Hx Alcohol Use: No alcohol intake frequency: a few times a week Hx Substance Use: No substance use type: does not use Physical Exam Vital Signs Last Vital Signs Temp 36.7 C 06/18/24 10:01 Pulse 88 06/18/24 10:01 Resp 20 06/18/24 10:01 BP 133/74 06/18/24 10:01 Pulse Ox 97 06/18/24 10:01 O2 Del Method Room Air 06/18/24 10:01 Lab Results Anesthesia Preop Results Results Anesthesia Widget: 2 WBC 5.10 K/ul (4.8-10.8) 06/18/24 Hgb 12.5 g/dl (12.0-16.0) 06/18/24 Hct 39.8 % (37.0-47.0) 06/18/24 Plt 281 K/uL (130-400) 06/18/24 Na 140 mmol/L (136-145) 05/01/24 K 4.2 mmol/L (3.5-5.1) 05/01/24 Cl 108 mmol/L (98-107) H 05/01/24 CO2 30 mmol/L (21-32) 05/01/24 BUN 18 mg/dl (6-23) 05/01/24 Creat 0.87 mg/dl (0.6-1.2) 05/01/24 Glucose Level 97 mg/dl (70-99(Fasting)) 05/01/24 Testing Laboratory Results 06/18/24 09:49 Electrocardiogram Date: 07/18/23 NSR, rate 64 bpm Stress Test Date: 03/14/22 Negative pharmacologic stress echo and EKG for ischemia MPHR 90% EF 65% No regional wall motion abnormalities
[~2024-06-18 09:38] MED LIST changes: +ROPIVACAINE 0.5% 5 MG/ML 30 ML VIAL ONE; -ROPIVACAINE 0.5% HCL/PF 150 MG, BUPIVACAINE 0.75% MPF 20 ML, EPINEPHrine 0.15 MG, Ketor... INFIL SCH
[2024-06-18 10:11] LABS: Basophils # (auto) 0.04 K/uL (0.00-0.20); Basophils % (auto) 0.8 %; Eosinophils # (auto) 0.29 K/uL (0.00-0.50); Eosinophils % (auto) 5.7 %; Hematocrit (blood only) 39.8 % (37.0-47.0); Hemoglobin 12.5 g/dl (12.0-16.0); Lymphocytes # (auto) 1.47 K/uL (1.20-3.40); Lymphocytes % (auto) 28.8 %; Mean Corpuscular Hemoglobin 29.2 pg (25.0-34.0); Mean Corpuscular Hgb Conc 31.4 g/dL (32.0-36.0); Monocytes # (auto) 0.33 K/uL (0.11-0.59); Monocytes % (auto) 6.5 %; Neutrophils # (auto) 2.97 K/uL (1.40-6.50); Neutrophils % (auto) 58.2 %; Platelet Count 281 K/uL (130-400); RDW Coefficient of Variation 12.7 % (11.5-14.5); RDW Standard Deviation 43.2 fL (36.4-46.3); Red Blood Count 4.28 M/uL (4.20-5.40)
[2024-06-18] MEDS: LR 15ML/HR IV SCH ×2 (10:22)
[2024-06-18] MEDS ORDERED: ONDANSETRON INJ 2 MG/ML 2 ML VIAL ONE (11:13)
[2024-06-18] MEDS ORDERED: MIDAZOLAM HCL 1 MG/ML 2ML VIAL ONE (11:13)
[2024-06-18] MEDS ORDERED: fentaNYL citrate PF 100 MCG/2 ML VIAL ONE (11:13)
[2024-06-18] MEDS ORDERED: PROPOFOL IV EMULSION 10 MG/ML 20 ML VIAL IV ONE (11:13)
[2024-06-18] MEDS ORDERED: LIDOCAINE 2% 2 ML VIAL/AMP(20MG/ML) INFIL ONE (11:13)
[2024-06-18] MEDS ORDERED: ATROPINE SULFATE 0.1 MG/ML 10ML SYR IV PRN ×2 (11:46→11:47)
[2024-06-18] MEDS ORDERED: DROPERIDOL 5 MG/2 ML VIAL IV PRN (11:46)
[2024-06-18] MEDS ORDERED: ePHEDrine sulfate 50 MG/ML AMP IV PRN ×2 (11:46→11:47)
--- NOTE | 2024-06-18 12:02 | History & Physical Bridge Note ---
Date of Service June 18, 2024 History & Physical Bridge Note I have examined the patient, reviewed the History & Physical and in the interval since the performance of the History & Physical I have noted the following changes of clinical significance: no changes noted
--- OUTSIDE RECORDS SUMMARY | 2024-06-18 12:15 | External Medical Summary | Continuity of Care Document ---
Author Name Unknown Organization [id number] Address [address] [place] [phone] Care Team Providers Care Interactive Project Manager Name Role Phone Rosie Coulter Isha Primary Care Physician [phone] [id number] Date(s): 06/12/24 - 06/12/24 [facility] [address] [place] [address] [facility] [address] [address] Encounter Diagnosis S/P total knee replacement(Discharge Diagnosis) - 06/12/24 Knee stiffness(Discharge Diagnosis) - 06/12/24 Discharge Disposition: Home or Self Care Attending Physician: MD Wren Paul K Allergies, Adverse Reactions, Alerts No Known Allergies Assessment and Plan Extracted from: Title:Jamie Wren Author:Keron Rojas Date:06/12/24 Impression: 58 year old fema le 6 weeks s/p left TKA, DOS: 04/30/24, with stiffness. Plan: - I discussed the patient's treatment options of conservative management versus surgical intervention and they will elect to proceed with surgery. Surgical plan to includeleft knee manipulation under anesthesia.Rehabilitation plan discussed. Reviewed risks and benefits of surgery, alternatives, and expected outcomes. All questions were answered. She is not currently taking blood thinners. No diabetes or pacemaker. No latex allergy. Plan is to have the patient stay overnight in the hospital given her pain after the prior procedure. - We discussed that the patient will take Losartan and oral steroidsstarting the day after surgery to improve scar tissue. - I advised the patient not to return to [facility] at this point. - They will follow-up to have a preoperative history and physical examination completed. The patient understood all my instructions and explanation; all their questions were satisfactorily addressed. Immunizations Given and Recorded Vaccine Date Status Refusal Reason tetanus/diphtheria/pertuss, acel (Tdap) 04/16/22 G iven tetanus/diphtheria/pertuss, acel (Tdap) 06/14/05 R ecorded influenza virus vaccine, inactivated 01/16/22 Give n SARS-CoV-2 (COVID-19) mRNA BNT-162b2 vax 1 08/10/20 Recorded SARS-CoV-2 (COVID-19) mRNA BNT-162b2 vax 2 07/18/20 Recorded 1Result Comment: 2021-01-01: Historical information-source unspecified 2Result Comment: 2021-01-01: Historical information-source unspecified Medications cyclobenzaprine 10 mg oral tablet Start: 06/10/24 1:21:00 PM EST, 1 tab, PO, qhs, Disp# 30 tab, Refills: 0, PRN: NEEDED FOR PAIN, Pharmacy: [id number] Start Date: 06/10/24 Status: Ordered diclofenac sodium 75 mg oral delayed release tablet Start: 06/10/24 3:07:00 PM EST, 1 tab, PO, bid, Disp# 60 tab, Refills: 0, for use for prolonged episode of pain, Pharmacy: [id number] Start Date: 06/10/24 Stop Date: 07/10/24 Status: Ordered losartan 25 mg oral tablet Start: 06/12/24 9:33:00 AM EST, 1 tab, PO, bid, Disp# 60 tab, Pharmacy: [id number] Start Date: 06/12/24 Status: Ordered Medrol Dosepak 4 mg oral tablet Start: 06/12/24 9:32:00 AM EST, See Instructions, Disp# 21 tab, Take as directed on package labeling for 6 days., Pharmacy: [id number] Start Date: 06/12/24 Stop Date: 06/18/24 Status: Ordered oxyCODONE 5 mg oral tablet Start: 05/27/24 2:59:00 PM EST, 5 mg =, PO, q6h, Disp# 28 tab, Refills: 0, Ongoing Tx Max 6/day, PRN: as needed for pain, Pharmacy: [id number] Start Date: 05/27/24 Status: Ordered oxyCODONE 5 mg oral tablet Start: 05/04/24 12:30:00 PM EST, 1 tab, PO, q4h, Disp# 28 tab, Refills: 0, Post op pain control Ongoing Tx Max6/day, Pharmacy: [id number] Start Date: 05/04/24 Status: Ordered Penlac Nail Lacquer 8% topical solution Start: 12/25/22 9:33:00 AM EDT, 1 appl, topical, Daily, Disp# 6.6 mL, Refills: 3, Pharmacy: [id number] Start Date: 12/25/22 Stop Date: 08/30/26 Status: Ordered triamcinolone 0.025% topical cream Start: 04/24/24 8:05:00 AM EST, 1 appl, topical, bid, Disp# 60 g, Refills: 2, Pharmacy: [id number] Start Date: 04/24/24 Stop Date: 05/15/24 Status: Ordered Zofran ODT 4 mg oral tablet, disintegrating Start: 07/18/23 9:23:00 AM EDT, 1 tab, PO, tid, Disp# 12 tab, PRN: as needed for nausea/vomiting, Pharmacy: [id number] Start Date: 07/18/23 Status: Ordered Mental Status 06/12/24 Barriers to Learning one year None evide nt Mandatory Health Literacy Documentation Yes Health Literacy Communication Barriers N ever Primary Language Ukrainian Problem List Condition Confirmation Course Effective Dates [...] Effective Dates Health Status Clinical Service Informant S/P total knee replacement Discharge Diagnosis 06/12/24 Knee stiffness Discharge Diagnosis 06/12/24 Procedures Procedure Date Related Diagnosis Body Site Status Arthroplasty of left knee 04/30/24 Completed Hip arthroplasty 1 05/03/22 Comple adriana THR [...] Most recent to oldest [Reference Range]: 1 Temperature [36.5-37.9 DegC] 36.6 DegC (06/12/24 9:41 AM) Heart Rate 75 bpm (06/12/24 9:41 AM) Blood Pressure 120/80mmHg (06/12/24 9:41 AM) Cuff Pulse Pressure 40 mmHg (06/12/24 9:41 AM) Social History Social History Type Response Smoking Status Never smoked cigaret amilcar Sex Female Sex Representation Female (finding) Ortho Outpt Note * HandmickykerCatherine: PERFORM, MODIFY, MODIFY, MODIFY Event Display: Ortho Outpt Note Authored Date: [id number] Primary Care Provider SUKHI Coulter Shari A Chief Complaint f/u L tka History of Present Illness Kimberly Morse presents today forf/u 6 weeks s/p left TKA, DOS: 04/30/24. She reports that her pain level after surgery was very high. She is still having significant pain and is not able to bend her knee easily. Her pain reaches 8-9/10, and notes pain on theposterior knee that radiates into the anterior knee. She is attending PT and doing her at-home exerc ises.After sitting for a prolonged period of time, she feels that she has to get up and moving todecrease the pain. She denies any fever or chills, but endorses some swelling in her knee and ankle, along with cramps on the back of her calf.She takes half of a codeine pill at night to help her sleep, and is trying to wean herself off of taking it. She also takes diclofenac and 2 Tylenolin the morning.The patient reports that her blood pressure typically runs low, buthas recently been in normal range. She was on Wegovy prior to surgery, but has not yet returned to taking it, and saysshe has gained 10 lbs since the surgery. Review of Systems Refer to the HPI. Physical Exam Focusing on the patient'sLEFT lower extremity: Incision is well healed with no drainage or evidence of infection Mild warmth, appropriate for this stage post-operatively ROM: 3 to 75 Nontender in the calf + Félix's sign Diagnostic Results 3views of theleft kneeobtained today and personally interpreted by me taken at [facility] show hardware in good position with no evidence of loosening. Assessment/Plan Impression: 58 year old female 6 weeks s/p left TKA, DOS: 04/30/24, with stiffness. Plan: - I discussed the patient's treatment options of conservative management versus surgical intervention and they will elect to proceed with surgery. Surgical plan to includeleft knee manipulation under anesthesia.Rehabilitation plan discussed. Reviewed risks and benefits of surgery, alternatives,and expected outcomes. All questions were answered. She is not currently taking blood thinners. No diabetes or pacemaker. No latex allergy. Plan is to have the patient stay overnight in the hospital given her pain after the prior procedure. - We discussed that the patient will take Losartan and oral steroidsstarting the day after surgery to improve scar tissue. - I advised the patient not to return to [facility] at this point. - They will follow-up to have a preoperative history and physical examination completed. The patient understood all my instructions and explanation; all their questions were satisfactorilyaddressed. Attestation I, Catherine Rojas, have scribed for, and in the presence of, Jamie Wren, on this date,06/12/2024 09:17:33. Problem List/Past Medical History Ongoing Arthritis of [...] ankle sprain Right eye injury Procedure/Surgical History Arthroplasty of left knee| Service Date: 04/30/2024Hip arthroplasty| Service Date: 05/03/2022THR - Total hip replacement| Service Date: 2CT of paranasal sinuses| Service Date: 2CT of abdomen and pelvis| Service Date: 2CT of abdomen and pelvis| Service Date: 02/22/2021Mammogram| Service Date: 02/27/2020Colonoscopy| Service Date: 01/01/2020Mammogram| Service Date: 02/06/2019Mammogram| Service Date: 02/05/2018Mammogram| Service Date: 12/26/2016REPAIR OF NASAL SEPTUM| Service Date: 11/02/2016Mammogram| Service Date: 11/16/2015CT- Computerized tomography| Service Date: 07/07/2015tubal ligationsinus surgeryTAH - Total abdominal hysterectomy and bilateral salpingo- oophorectomyCholecystectomyAmputated ring finger Medications ciclopirox topical(Penlac Nail Lacquer 8% topical solution), 1 appl, topical, Daily, 3 refills cyclobenzaprine(cyclobenzaprine 10 mg oral tablet), 1 tab, PO, qhs, PRN diclofenac(diclofenac sodium 75 mg oral delayed release tablet), 75 mg= 1 tab, PO, bid meclizine(meclizine 25 mg oral tablet), 25 mg= 1 tab, PO, tid, PRN omeprazole(omeprazole 20 mg oral delayed release capsule), 1 cap, PO, Daily ondansetron(Zofran ODT 4 mg oral tablet, disintegrating), 4 mg= 1 tab, PO, tid, PRN oxyCODONE(oxyCODONE 5 mg oral tablet), 5 mg, PO, q6h, PRN oxyCODONE(oxyCODONE 5 mg oral tablet), 5 mg= 1 tab, PO, q4h semaglutide(Wegovy (1 mg dose) subcutaneous solution), 1 mg, subQ, q7days, 2 refills semaglutide(Wegovy (0.5 mg dose) subcutaneous solution), 0.5 mg, subQ, q7days, 1 refills triamcinolone topical(triamcinolone 0.025% topical cream), 1 appl, topical, bid, 2 refills Allergies NKA Social History Smoking Status Never smoked cigarettes Alcohol Type:Beer Frequency:1-2 times per month Employment/School Status:Employed Work hazards:Heavy lifting/twisting, Loud noises, Repetitive motion 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: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 [employer] - Comments: 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 [employer] Exercise Duration (average number of minutes):30 Times per week:Daily Exercise type:Walking Home/Environment Lives with:Spouse Living situation:Home/Independent Family/Friends available to help:Yes - Comments: Joseph Jones Substance Abuse - Denies Substance Abuse [...] the next year) OverDue Adult Influenza Vaccine due11/04/23and every 1year Due Adult COVID-19 Vaccination due06/12/24Unknown Frequency Adult Social Determinants of Health Screening due06/12/24Unknown Frequency Pneumococcal Vaccine Adults and Adolescents with Chronic Illness due06/12/24One-time only Shingles Vaccine due06/12/24One-time only Due In Future Body Mass Index not due until04/25/25and every 366day Satisfied(in the past 1 year) Satisfied Body Mass Index on04/24/24.Satisfied by CRISTO Manzano Angela Breast Cancer Screening on05/14/24.Satisfied by CRISTO Schwab Angela Electronic Signature on File Electronically Reviewed/Signed by: Catherine Valladaresmatiffani Author Signature Dt/Tm:06/12/2024 10:03 AM Electronically Reviewed/Signed by: Jamie Wren MD Cosigner Signature Dt/Tm: 06/12/2024 12:41PM Division of Sports Medicine [facility] Patient Care team information Care Team Personnel Name: SUKHI Coulter Shari A Position: Nurse Pract - Family Med Member Role: Primary Care Provider Address: [address] [place] [address] [place] Care Team Related Persons Name: JOSEPH JONES Name: JOSEPH JONES"
--- OUTSIDE RECORDS SUMMARY | 2024-06-18 12:15 | External Medical Summary | Continuity of Care Document ---
Author Name Unknown Organization [facility] [address] [place], [place] [address] Address [address] [place] [phone] Care Team Providers Care Hydrometeorologist Name Role Phone Rosie Coulter Primary Care Physician [phone] [facility]counter [facility] [id number] Date(s): 06/12/24 - 06/12/24 [facility] [address] [facility] [place] [id number] [address] [address] Discharge Disposition: Home or Self Care Attending Physician: DANIEL Kelley, Shyam Billings Referring Physician: MD Siena, Jamie Duenas Allergies, [...] Refills: 0, PRN: NEEDED FOR PAIN, Pharmacy: [id number] Start Date: 06/10/24 Status: Ordered diclofenac sodium 75 mg oral delayed release tablet Start: 06/10/24 3:07:00 PM EST, 1 tab, PO, bid, Disp# 60 tab, Refills: 0, for use for prolonged episode of pain, Pharmacy: [id number] Start Date: 06/10/24 Stop Date: 07/10/24 Status: Ordered losartan 25 mg oral tablet Start: 06/12/24 9:33:00 AM EST, 1 tab, PO, bid, Disp# 60 tab, Pharmacy: [id number] Start Date: 06/12/24 Status: Ordered Medrol Dosepak 4 mg oral tablet Start: 06/12/24 9:32:00 AM EST, See Instructions, Disp# 21 tab, Take as directed on package labeling for 6 days., Pharmacy: [id number] Start Date: 06/12/24 Stop Date: 06/18/24 Status: Ordered oxyCODONE 5 mg oral tablet Start: 05/27/24 2:59:00 PM EST, 5 mg =, PO, q6h, Disp# 28 tab, Refills: 0, Ongoing Tx Max 6/day, PRN: as needed for pain, Pharmacy: [id number] Start Date: 05/27/24 Status: Ordered oxyCODONE 5 mg oral tablet Start: 05/04/24 12:30:00 PM EST, 1 tab, PO, q4h, Disp# 28 tab, Refills: 0, Post op pain control Ongoing Tx Max6/day, Pharmacy: [id number] Start Date: 05/04/24 Status: Ordered Penlac Nail Lacquer 8% topical solution Start: 12/25/22 9:33:00 AM EDT, 1 appl, topical, Daily, Disp# 6.6 mL, Refills: 3, Pharmacy: [id number] Start Date: 12/25/22 Stop Date: 08/30/26 Status: Ordered triamcinolone 0.025% topical cream Start: 04/24/24 8:05:00 AM EST, 1 appl, topical, bid, Disp# 60 g, Refills: 2, Pharmacy: [id number] Start Date: 04/24/24 Stop Date: 05/15/24 Status: Ordered Zofran ODT 4 mg oral tablet, disintegrating Start: 07/18/23 9:23:00 AM EDT, 1 tab, PO, tid, Disp# 12 tab, PRN: as needed for nausea/vomiting, Pharmacy: [id number] Start Date: 07/18/23 Status: Ordered Mental Status 06/12/24 Barriers to Learning one year None evide nt Mandatory Health Literacy Documentation Yes Health Literacy Communication Barriers N ever Primary Language Amharic Problem List Condition Confirmation Course Effective Dates [...] spondylolysis Confirmed Active Weight disorder Confirmed Active Procedures Procedure Date Related Diagnosis Body Site [...] CT with and without iv contrast,urogram protocol Social History Social History Type Response Smoking Status Never smoked cigaret amilcar Sex Female Sex Representation Female (finding) Patient Care team information Care Team Personnel Name: SUKHI Coulter Shari A Position: Nurse Pract - Family Med Member Role: Primary Care Provider Address: [address] [place] [address] [place] Care Team Related Persons Name: LIA JONES Name: LIA JONES
[2024-06-18] MEDS: fentaNYL citrate PF 100 MCG/2 ML VIAL IV PRN ×2 (13:06→13:54)
[2024-06-18] MEDS ORDERED: oxyCODONE HCL IR 5 MG TAB (IMMEDIATE RELEASE) PO PRN ×2 (13:07→13:12)
[2024-06-18] MEDS ORDERED: bisacodyL 10 MG SUPP PR PRN (13:07)
[2024-06-18] MEDS ORDERED: diphenhydrAMINE 50 MG/ML VIAL IV PRN (13:07)
[2024-06-18] MEDS ORDERED: NALOXONE HCL 0.4 MG/1 ML VIAL/CARP IV PRN (13:07)
[2024-06-18] MEDS ORDERED: MAGNESIUM HYDROXIDE SUSP 30 ML UDC PO PRN (13:07)
[2024-06-18] MEDS ORDERED: HYDROmorphone INJ 0.5 MG/0.5 ML SYR IV PRN (13:07)
[2024-06-18] MEDS ORDERED: METOCLOPRAMIDE HCL INJ 5 MG/ML 2 ML VIAL IV PRN (13:07)
[2024-06-18] MEDS ORDERED: ONDANSETRON INJ 2 MG/ML 2 ML VIAL IV PRN (13:07)
--- NOTE | 2024-06-18 13:11 | Operative Report ---
Post Operative Report Pre & Post Diagnosis Operation Date: 06/18/24 11:20 Pre-Op Diagnosis: Left Knee Stiffness Post-Op Diagnosis: Left Knee Stiffness I identified the patient and participated in the time-out.: Yes Procedure Operation Date: 06/18/24 11:20 Actual Procedures p Left Knee Manipulation Under Anesthesia(Left) - Jamie Wren MD Surgeon Jamie Wren MD Supervisor [employer] RONDA Aden PA-C. No resident or fellow was available to assist. Estimated Blood Loss 0 Findings Consistent with Post-Op Diagnosis Specimens None Anesthesia Type General Regional Complications none Disposition Disposition: Recovery Room Indications 58-year-old female, status post a left total knee arthroplasty by myself on April 30, 2024. She struggled with some pain after surgery and stiffness. At her recent follow-up visit her range of motion arc was limited from 10 to 70 degrees. 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 Manipulation under anesthesia was indicated to improve her range of motion and hopefully improve her pain. I had a long discussion with her about the risks and benefits of surgery, alternatives to surgery, and expected outcomes. After reviewing all these she elected to proceed. All questions were answered. Informed consent was signed. Description of Procedure Patient was identified in the preoperative holding area where her surgical site was marked. She was given an adductor canal block by anesthesia to help with postoperative pain control. She was then brought back to the operating room where she moved onto the operating room table and general anesthesia was administered. This was with an LMA. All bony prominences were padded. No perioperative antibiotics were indicated since no incisions were planned. A p resurgical timeout was called. All in the room in agreement. I began by measuring her range of motion arc with a goniometer. She was indeed 12 to 70 degrees. She had a soft endpoint however at end range of motion consistent with scar tissue. I also checked her patella. On her contralateral side she had about 1-1/2 quadrants of translation medially and laterally. On the affected left side she had only about 1 quadrant of translation. Therefore I manipulated her patella by pushing it first medially and then laterally and holding pressure in order to stretch out the retinaculum. This was done several times while my PA was stabilizing the leg. I then rechecked her patellar mobility and she now had 1-1/2 quadrants of translation symmetric with the other side. Next, a sandbag was placed underneath the heel and we worked on improving her extension. Locating the joint line I then applied an anterior to posteriorly directed force through the knee gradually. Small pops could be appreciated by feel only. These were not audible. The knee was rechecked and she was now at 0 degrees of extension which I was happy with. Next, the hip was flexed up so her femur was vertical which was stabilized by my podiatrist assistant. I stood onto stepstools and then applied a anterior to posteriorly directed force through the proximal tibia at the level of the tibial tubercle. Several small pops were felt consistent with scar tissue breaking up. I continue to apply force in a gradual manner so as to stretch the capsule. After a few minutes we rechecked her flexion and she was now at 120 degrees which I was happy with. Knee was then brought through a full range of motion. She continued to be stable to varus and valgus stresses throughout the range of motion. Patellar tracking appeared excellent. Her anesthesia was then lifted and she was transferred to recovery room in stable condition. Postoperative course: Patient will be admitted to the floor for postoperative pain control and physical therapy. She should discharge home tomorrow. No DVT prophylaxis is indicated for this small procedure in an ambulatory patient. I attest to the content of the Intraoperative Record and any orders documented therein. Any exceptions are noted below.
[2024-06-18] MEDS ORDERED: CYCLOBENZAPRINE HCL 10 MG TAB PO PRN (13:12)
[2024-06-18] MEDS ORDERED: fentaNYL citrate PF 100 MCG/2 ML VIAL IV PRN (13:55)
--- NOTE | 2024-06-18 14:23 | Anesthesiology Progress Note ---
Date of Service June 18, 2024 Anesthesia Post Procedure Vital Signs Vital Signs: Temp Pulse Pulse Resp BP BP Pulse Ox 06/18/24 14:15 82 14 117/64 97 06/18/24 14:05 74 15 109/63 97 06/18/24 13:55 98.1 F 66 19 109/69 97 06/18/24 13:45 67 15 112/67 97 06/18/24 13:35 83 14 102/55 L 97 06/18/24 13:25 65 12 109/63 92 06/18/24 13:15 72 17 107/68 100 06/18/24 13:06 98.2 F 74 16 105/66 100 06/18/24 10:01 98.1 F 88 20 133/74 97 O2 Del Method O2 Flow Rate 06/18/24 14:15 Room Air 06/18/24 14:05 Room Air 06/18/24 13:55 Room Air 06/18/24 13:45 Room Air 06/18/24 13:35 Room Air 06/18/24 13:25 Oxymask 8 06/18/24 13:15 Oxymask 8 06/18/24 13:06 Oxymask 8 06/18/24 10:01 Room Air Pain Intensity Left Knee: Pain Intensity: 2 Transfer of Care Handoff Completed per policy Notes Mental Status: alert / awake / arousable and participated in evaluation Patient Amnestic to Procedure: Yes Nausea / Vomiting: adequately controlled Pain: adequately controlled Airway Patency, RR, SpO2: stable & adequate BP & HR: stable & adequate Hydration State: stable & adequate Anesthetic Complications: no major complications apparent and Pt Satisfied with anesthetic care
[2024-06-18] MEDS: methylPREDNISolone acetate 80 MG/ML VIAL ONE (15:32)
[2024-06-18] MEDS: BUPIVACAINE 0.5 % 5 MG/1 ML MPF 30ML VIAL ONE (15:32)
[2024-06-18] MEDS: BUPIVACAINE/EPINEPHRINE 0.5% MPF 1:200,000 30 ML VIAL ONE (15:32)
[2024-06-18] MEDS: SODIUM CHLORIDE 0.9% PF INJ 10 ML VIAL ONE (15:32)
[2024-06-18] MEDS: SODIUM CHLORIDE 0.9% PF 50 ML VIAL ONE (15:33)
[2024-06-18 16:02] VITALS: RESP 16
[2024-06-18] MEDS: ONDANSETRON 4 MG OD TAB PO SCH (16:05)
[2024-06-18] MEDS: ACETAMINOPHEN 500 MG TAB PO SCH (16:12)
[2024-06-18] MEDS: KETOROLAC TROMETHAMINE 15 MG/ML VIAL IV SCH (16:13)
[2024-06-18] MEDS: SENNA 8.6 MG TAB PO SCH (20:29)
[2024-06-18] MEDS: DOCUSATE SODIUM 100 MG CAP PO SCH (20:29)
[2024-06-18] MEDS ORDERED: DICLOFENAC SODIUM 75 MG TABCR PO SCH (21:00)
[2024-06-19 05:07] VITALS: PULSE 72
[2024-06-19 07:22] VITALS: BP 115/74; TEMP 98.1; O2SAT 98
--- NOTE | 2024-06-19 10:42 | Orthopedic Progress Note ---
Date of Service June 19, 2024 Assessment & Plan (1) S/P surgical manipulation of knee joint: Plan: WBAT with walker/cane PT/OT Ice with EZ wrap Cont outpatient PT D/C home today Pain control with po meds Refilled Oxycodone Rx F/u at [facility] as scheduled With questions contact our clinic at [phone] Admission and Anticipated Discharge Date Admission Date: June 18, 2024 Subjective This 58 yo F is day 1 s/p left knee manipulation under anesthesia 6 weeks s/p total knee arthroplasty. Patient is doing well this. Pain is very minimal. She was also to walk around floor w/ PT without issue. State that she is going to be diligent with her PT and HEP activities. She denies CP, SOB, N/V/D/C, fever, chills, sweats or N/T in her left LE. Review of Systems Review of Systems: All systems reviewed & are unremarkable except as noted in Subjective Physical Exam Physical Exam: Left Knee: ROM 0-90 actively. Able to SLR and dorsi/plantar flex foot. quad strength 4-5. NV intact. Minimal edema. No ecchymosis. Calf soft and supple. Results & Data Vital Signs (Past 12 Hours) Vital Signs Temp Pulse Pulse Resp BP Pulse Ox O2 Del Method 06/19/24 07:20 36.7 C 72 16 115/74 98 Room Air 06/19/24 04:00 36.5 C 72 16 106/67 95 Room Air Diagnostic Findings Laboratory Results WBC 5.10 K/ul (4.8-10.8) 06/18/24 09:49 RBC 4.28 M/uL (4.20-5.40) 06/18/24 09:49 Hgb 12.5 g/dl (12.0-16.0) 06/18/24 09:49 Hct 39.8 % (37.0-47.0) 06/18/24 09:49 MCV 93.0 fL (80.0-100.0) 06/18/24 09:49 MCH 29.2 pg (25.0-34.0) 06/18/24 09:49 MCHC 31.4 g/dL (32.0-36.0) L 06/18/24 09:49 RDW Std Deviation 43.2 fL (36.4-46.3) 06/18/24 09:49 RDW Coeff of Roma 12.7 % (11.5-14.5) 06/18/24 09:49 Plt Count 281 K/uL (130-400) 06/18/24 09:49 MPV 9.0 fL (9.4-12.4) L 06/18/24 09:49 Immature Gran % (Auto) 0.0 % 06/18/24 09:49 Neut % (Auto) 58.2 % 06/18/24 09:49 Lymph % (Auto) 28.8 % 06/18/24 09:49 Stoddard % (Auto) 6.5 % 06/18/24 09:49 Eos % (Auto) 5.7 % 06/18/24 09:49 Baso % (Auto) 0.8 % 06/18/24 09:49 Neut # (Auto) 2.97 K/uL (1.40-6.50) 06/18/24 09:49 Lymph # (Auto) 1.47 K/uL (1.20-3.40) 06/18/24 09:49 Stoddard # (Auto) 0.33 K/uL (0.11-0.59) 06/18/24 09:49 Eos # (Auto) 0.29 K/uL (0.00-0.50) 06/18/24 09:49 Baso # (Auto) 0.04 K/uL (0.00-0.20) 06/18/24 09:49 Immature Gran # (Auto) 0.00 K/uL (0.01-0.20) L 06/18/24 09:49 POC Glucose 156 mg/dl (70-99) H 06/18/24 16:26
--- NOTE | 2024-06-19 11:06 | Discharge Summary ---
Date of Service June 19, 2024 Admission HPI Per Admitting Provider History of Present Illness (including history relevant to procedure): This 58-year-old female presents today for her preoperative history and physical. She is scheduled to undergo a left knee manipulation under anesthesia on 06/18/[address] Wren. The patient had a left total knee arthroplasty done on 04/30/2025 (6 weeks ago) and has had persisting pain in the knee since. She has done physical therapy as well as a home exercise program without improvement in her range of motion. She is having difficulty with ambulation. She continues to require narcotic pain medication at night. She states the knee occasionally swells. Pain is worse with activity. She has been unable to improve her motion. She elects to proceed with surgical intervention in hopes of improving her pain and function. Admission Exam Per Admitting Provider Physical Exam: (relevant to the procedure, including heart and lung evaluation) General: Well-developed, well-nourished, middle-aged female, in no acute distress. Sitting in a chair. Obviously uncomfortable. Conversive. Alert and oriented. HEENT: Normocephalic, atraumatic. Eyes PERRLA, EOMI. Nares patent bilaterally without nasal drainage. Oropharynx with moist oral mucosa. Good dentition. Braces are noted. Neck: No JVD. Cardiac: RRR. No MGR. Peripheral pulses are 2+. Lungs: Clear to auscultation bilaterally. No crackles, rhonchi, or wheezing. Good air movement. Abdomen: Bowel sounds present x 4. Soft nontender. No organomegaly. Extremities: Left knee has a mild intra-articular effusion. She has generalized thickening about the knee from postsurgical scarring. She lacks about 5 degrees of terminal extension. Flexion to only 75 degrees. This causes significant discomfort. Intact quadriceps tendon and patellar tendon. She is able to perform a straight leg raise. Ambulating today with an antalgic gait using a cane. Neuro: Gross sensation is intact across the left leg by soft touch. Skin: Warm dry with good turgor. No rashes. Mild intra-articular effusion is present in the left knee. She has a healing surgical scar present anteriorly. Mild warmth to the knee. Principal Diagnosis Left knee manipulation under anesthesia s/p Total knee arthroplasty Discharge Exam Left Knee: ROM 0-90 actively. Able to SLR and dorsi/plantar flex foot. quad strength 4-5. NV intact. Minimal edema. No ecchymosis. Calf soft and supple. Discharge Data Allergies Allergy/AdvReac Type Severity Reaction Status Date / Time cortisone AdvReac Severe Had Verified 06/18/24 09:59 episode ITP after injection morphine AdvReac Mild Nausea Verified 06/18/24 09:59 Procedures Performed Operation Date: 06/18/24 11:20 Actual Procedures p Left Knee Manipulation Under Anesthesia(Left) - Jamie Wren MD Ordered Studies 06/18/24 05:00 US - OR guided needle placemen Routine Hospital Course (1) S/P surgical manipulation of knee joint: Patient had an uneventful overnight stay follow manipulation of her left knee under anesthesia. Pain well controlled. Did well with PT this AM. Ready for discharge. WBAT with walker/cane PT/OT Ice with EZ wrap Cont outpatient PT D/C home today Pain control with po meds Refilled Oxycodone Rx F/u at [facility] as scheduled With questions contact our clinic at [phone] Total Time Total Time Spent Total Time Spent (In Minutes): 25 mins Discharge Plan Discharge Items Patient Disposition: Home - Self-Care Reason For Visit: Left Knee Stiffness Discharge Diagnosis: s/p Left knee manipulation under anesthesia Activity: As commented below Lifting: None Bathing: Keep incision dry Bathing Comment: May shower today Sexual Activity: Wait until after follow-up appointment Exercise/Sports: Wait until after follow-up appointment Driving/Machine Use: No driving until cleared by events specialist Weightbearing: Left weightbearing Weightbearing Comment: as tolerated with walker assistance Non-emergency contact: Surgeon Call non-emergency contact if: you have any medication questions, your pain is not controlled, your temperature is above 101.5, your wound has increased drainage and your wound pain has increased Follow-up/Referrals: Rosie Coulter CRNP [Primary Care Provider] - Diet: Regular Addtl Attending Provider Instructions: Post-operative Instructions Dear Patient and Family/Friends, Before you are discharged from the hospital, it is important to know what to ex pect when you get home after surgery. To that end, we have created this sheet of discharge instructions which covers many commonly asked questions. Make sure you go through this sheet in its entirety with your nurse before you are discharged. Please note that we will go over the specifics of your surgery and recovery when you return for your first post-operative visit. Sincerely, Dr. Wren Pain Expect to be in a fair amount of pain after surgery. Remember, our goal is not to eliminate your pain, but to make it tolerable. It is a good idea to stay ahead of your pain by taking the medications you were prescribed once you get home. Typically, the pain starts improving 3-7 days after surgery. You should start weaning off the narcotic pain medication (oxycodone, hydrocodone, hydromorphone, morphine) as soon as your pain improves. Please call our office if your pain is not adequately controlled. Ice Ice your operative site at least 5 times a day for 15-30 minutes at a time. Make sure you have a thin cloth between the ice or cooling unit and your skin to prevent saul bite. This is especially important if you received a nerve block. Continue icing your operative site for the first 5-7 days after surgery, then as needed. Diet/Nausea/Vomiting Start by drinking clear liquids and eating crackers. If you can tolerate this, then you may resume your normal diet. If you feel nauseated or vomit, take Zofran/ondansetron (if prescribed). Please call our office if you have intractable nausea or vomiting, or, if after hours, you may go to the Emergency Room for help. Constipation Constipation is a common side effect of narcotic pain medication. If you have not had a bowel movement within 2 days after surgery, we recommend purchasing an over the counter laxative such as Milk of Magnesia, Dulcolax, or Miralax from a local pharmacy, and taking it as instructed. Call our clinic if any questions. Nerve block The anesthesia team sometimes places a nerve block to help with post-operative pain control. This results in significant numbness and inability to move the extremity. The nerve block usually wears off in 8-12 hours, but sometimes can last up to 24 hours. Please call our office if you are still unable to move your extremity after 24 hours, unless you received a pain pump to take home. Nerve blocks typically wear off quickly, so start taking pain medication as soon as you start feeling soreness near your surgical site. Weight bearing and Range of Motion. Do not bear any weight through your operative extremity immediately after surgery. If you had upper extremity surgery, do not lift anything with that arm. If you are in a knee brace, keep it locked in place until your follow-up. We will discuss your weight bearing, range of motion, and lifting restrictions in detail at your first post-operative appointment. Continuous Passive Motion (CPM) Machine If you were prescribed a CPM machine, it will start after your first post- operative appointment, at which time we will give you instructions on the range of motion settings and duration of treatment Physical therapy You will be given a prescription for physical therapy or occupational therapy at your first post-operative appointment. Typically, patients start therapy within 1 week of surgery Wound care and showering We will inspect your wound at your first post-operative visit, and may do a dressing change at that time. Most patients will be in a water-proof dressing that is removed 14 days after surgery. It is normal to see some dried blood on the dressing. Do not remove your dressing, paper strips or sutures yourself unless you are given permission. Showering is allowed the day after surgery. Do not scrub or remove any dressings. The wound should not be submerged underwater (i.e. in a bathtub or pool) until 4 weeks after surgery ALBERTINA stockings If you were given white stockings, these are to be worn at all times except to shower (on both legs) for the first 2 weeks after surgery. Driving You may not drive while taking narcotic pain medication or while in a cast, splint, sling or brace. You, the patient, need to make the final determination about when you are safe to drive, however, the earliest you may consider driving after surgery is below: Hand/Wrist/Elbow Surgery: 3 days Shoulder Surgery: 2 weeks Hip,/Knee/Ankle Surgery: 4 weeks Fracture repair: 6 weeks Return to Work Your return to work depends on what surgery was done and what type of work you do. Please bring any paperwork your employer needs completed to your first post-operative visit. Also, bring a description of your job duties, as this helps us to understand what risks you may face at work. Travel Avoid long distance travel (greater than 1 hour) in airplanes and cars for the first 6 weeks after surgery. If you must travel, you need to have a Doppler ultrasound done before you travel to rule out a blood clot in your legs. Follow-up You should have a follow-up appointment already scheduled 1-2 days after surgery. If not, please contact our office to make this appointment before you leave the hospital. When to call the office It is normal to have swelling and bruising in the limb that was operated on. This will improve with time. It is also normal to have fevers for the first 2 days after surgery. Reasons you should call your doctor include: Uncontrolled pain; Nausea, vomiting, or constipation that does not improve with medication; Fevers over 101.5, chills, sweats; Drainage or bleeding from the wound; Foul odor; Spreading areas of redness; Any other concerns. Contact Information Please call Dr. Wren's office at [phone] with any concerns. Pending Studies at Discharge: No Stand-Alone Forms: [facility] Medications and DC Order Prescriptions: New oxycodone 5 mg Tablet 5 - 10 mg PO Q4H MDD Max 12 tabs/day; ongoing Tx PRN (Reason: Post op pain control) Qty: 28 0RF Continued cyclobenzaprine 10 mg tablet 10 mg PO TID PRN (Reason: muscle spasm) Qty: 15 0RF oxycodone 5 mg Tablet 5 - 10 mg PO Q4H MDD Ongoing treatment PRN (Reason: Postoperative pain control) Qty: 28 0RF diclofenac sodium 75 mg tablet,delayed release (DR/EC) 75 mg PO BID 30 Days Qty: 60 1RF ondansetron 4 mg tablet,disintegrating 4 mg PO Q8H Qty: 14 0RF Discharge Orders: Discharge Order (Routine); Ordered 06/19/24 Ordered By: Neville Aden Admission Data Admit Date/Time: 06/18/24 13:08 Attending Provider: Jamie Wren Admit Provider: Jamie Wren Primary Care Provider: Rosie Coulter
[2024-06-19] MEDS: INFLUENZA VACC TS2024-25(6m+)/PF (IIV3) 0.5mL Syr IM ONE (11:40)
[2024-06-19] MEDS ORDERED: CeleBREX 200 MG CAP PO SCH (21:00)
== END 2024-06-19 12:14 | disposition home or self-care (01) ==
LOC: PACUINP 09:38 → ASU 09:38 → 3N 15:17
DX: Z88.5 Allergy status to narcotic agent; M25.662 Stiffness of left knee, not elsewhere classified; J45.909 Unspecified asthma, uncomplicated; Z96.652 Presence of left artificial knee joint; I10 Essential (primary) hypertension; M24.662 Ankylosis, left knee; Z79.899 Other long term (current) drug therapy; Z88.8 Allergy status to other drugs, medicaments and biological substances